=== PATIENT | female | born 1965 | race Caucasian/White ===

== ENCOUNTER 2016-04-27 11:04 | Emergency (ER) ==
[2016-04-27] MEDS ORDERED: PHENERGAN IV ONE ×2 (11:24→14:59)
[2016-04-27] MEDS ORDERED: SODIUM CHLORIDE 0.9% INJ ONE ×4 (11:24→14:59)
[2016-04-27] MEDS ORDERED: PROTONIX IV ONE (11:27)
[2016-04-27] MEDS ORDERED: PEPCID IV ONE (11:28)
[2016-04-27] MEDS ORDERED: MORPHINE IV ONE ×2 (11:28→14:59)
[2016-04-27 11:45] LABS: MANUAL DIFF NEEDED? NO
[2016-04-27 11:51] LABS: BASO% 0.1 % (0.0-0.8); HEMATOCRIT 42.9 % (37.0-47.0); HEMOGLOBIN 14.9 g/dL (12.0-16.0); IMM GRAN# 0.03 X1000 (0.0-0.04); IMM GRAN% 0.3 % (0.0-0.5); LYMPH# 2.99 X1000 (1.2-3.4); LYMPH% 29.3 % (20.5-51.1); MCH 34.4 PG (27-31); MCHC 34.7 g/dL (33-37); MCV 99.1 FL (81-99); MONO# 1.22 X1000 (0.11-0.59); MONO% 11.9 % (1.7-9.3); MPV 9.8 FL (7.4-10.4); NEUT% 58.4 % (42.2-75.2); PLT 375 X1000 (130-400); RBC 4.33 XMIL (4.2-5.4)
[2016-04-27 12:07] LABS: AGAP 18; ALBUMIN 4.1 g/dL (3.5-5.0); ALKALINE PHOSPHATASE 76 U/L (32-104); AMYLASE 67 U/L (20-200); BUN 9 mg/dL (8-22); CALCIUM 8.9 mg/dL (8.8-10.2); CHLORIDE 99 mmol/L (98-107); COSMO 280; GOT 13 U/L (10-30); GPT 7 U/L (10-36); LIPASE 24 U/L (13-60); POTASSIUM 3.5 mmol/L (3.5-5.1); SODIUM 141 mmol/L (136-145); TCO2 24 mmol/L (25-35); TOTAL BILIRUBIN 0.36 mg/dL (0.20-1.00); TOTAL PROTEIN 6.6 g/dL (6.3-8.3)
[2016-04-27 12:33] LABS: URINE CULTURE NEEDED? NO; URINE SOURCE CATH
[2016-04-27 12:39] LABS: BILIRUBIN URINE NEGATIVE (NEGATIVE); BLOOD URINE SMALL (NEGATIVE); COLOR YELLOW; GLUCOSE URINE NEGATIVE (NEGATIVE); LEUKOCYTES URINE NEGATIVE (NEGATIVE); NITRITE URINE NEGATIVE (NEGATIVE); PROTEIN URINE 200 mg/dL (NEGATIVE); TURBIDITY URINE CLEAR (CLEAR); UROBILINOGEN URINE NORMAL (NORMAL)
[2016-04-27 12:48] LABS: UR AMPHETAMINES QUAL PRESUMPTIVE POSITIVE (NONE DETECT); UR BARBITUATES QUAL NONE DETECTED (NONE DETECT); UR BENZODIAZEPIN QUAL PRESUMPTIVE POSITIVE (NONE DETECT); UR CANNABINOIDS QUAL NONE DETECTED (NONE DETECT); UR COCAINE QUAL NONE DETECTED (NONE DETECT); UR METHADONE QUAL NONE DETECTED (NONE DETECT); UR OPIATES QUAL PRESUMPTIVE POSITIVE (NONE DETECT); UR OXYCODONE QUAL PRESUMPTIVE POSITIVE (NONE DETECT); UR PCP QUAL PRESUMPTIVE POSITIVE (NONE DETECT)
[2016-04-27 12:59] LABS: SED RATE 3 mm/hr (0-20)
[2016-04-27 13:02] LABS: UR EPITHELIAL CELLS >10 /HPF (<10); URINE BACTERIA NEGATIVE /HPF; URINE MICRO REVIEW NEEDED? YES; URINE RBC <10 /HPF (<10); URINE WBC <10 /HPF (<10)
[2016-04-27 13:05] LABS: URINE CASTS NONE SEEN
--- NOTE | 2016-04-27 13:33 | PROVIDER DOCUMENTATION ---
HPI-Abdominal Pain/GI Problem - General Chief Complaint: Abdominal Pain Stated Complaint: Abd Pain,Dx with Gastritis Time Seen by Provider: 04/27/16 11:04 Source: patient, family Allergies/Adverse Reactions: Patient Allergies Allergy/AdvReac Type Severity Reaction Status Date / Time meperidine HCl * Allergy "made me Verified 04/27/16 11:23 [From Demerol] feel like I'm going crazy" ondansetron HCl * Allergy RASH Verified 04/27/16 11:23 [From Zofran (as hydrochloride)] Home Medications: Home Medication List Medication Instructions Recorded Confirmed Last Taken Type Promethazine [Phenergan] 25 mg PO Q6H PRN PRN #30 tablet 10/12/15 04/27/1604/27 05:00 Rx Omeprazole 40 mg PO DAILY 04/27/16 04/27/16 04/26/16 21:00 History Promethazine [Phenergan] 25 mg PO Q6H PRN PRN #30 tablet 04/27/16 Unknown Rx - History of Present Illness-ABD Nature of Presenting Problems: 51 yo WF presents with complaint of 2 weeks of very high fever and abdominal pain. She was seen in [place] last week. No studies were performed. She has severe abd pain, and vomiting. Hx of crohn's. Abdominal Pain Onset Location: reports: generalized abdomen Quality of Pain: reports: aching, cramping, sharp Severity in ED: reports: moderate Onset/Duration: reports: other (two weeks) Timing: reports: still present Activities at Onset: reports: none Modifying Factors: improves with: nothing Associated Symptoms: reports: fatigue, loss of appetite, vomiting. denies: chest pain, constipation, genitourinary problems, heartburn, shortness of breath , swelling/mass in abdomen Last BM: unsure Dark Stools Present?: reports: none noticed Rectal Bleeding: reports: none Rectal Pain: reports: none Emesis Description: reports: clear Bruising or Bleeding Gums?: No Similar Symptoms Previously?: Yes Recently seen or treated by another doctor?: Yes Review of Systems - Adult - REVIEW OF SYSTEMS - ADULT Constitutional: reports: fever Eyes: reports: no symptoms reported Ears, Nose, Mouth & Throat: reports: no symptoms reported Cardiovascular: reports: no symptoms reported Respiratory: reports: no symptoms reported Gastrointestinal: reports: see HPI, abdominal pain, nausea, poor appetite, vomiting. denies: hematemesis, constipation, diarrhea Genitourinary: reports: no symptoms reported Musculoskeletal: reports: no symptoms reported Integumentary: reports: no symptoms reported Neurological: reports: no symptoms reported Psychiatric: reports: no symptoms reported Endocrine: reports: no symptoms reported Hematologic/Lymphatic: reports: no symptoms reported Allergic/Immunologic: reports: no symptoms reported All Other Systems: Reviewed and Negative Past History - Adult - PAST MEDICAL HISTORY-ADULT Review of Records: reports: Old Records Reviewed, Nursing Assessment Review, Medications Reviewed, Social history reviewed & non-contributory. Genitourinary: reports: kidney stones - PRIOR SURGERIES/PROCEDURES Surgical/Procedure History: reports: appendectomy, tonsillectomy, other ( lithotripsy) - IMMUNIZATION STATUS Childhood Immunizations: See Nurse Assessment Flu Vaccine: See Nurse Assessment - FAMILY HISTORY Family History: reviewed, not pertinent - SOCIAL HISTORY Smoking: cigarettes, less than 1 pack/day Substance Use: denies Alcohol Use Frequency: never Living Situation: family Physical Exam-General - PHYSICAL EXAM-ADULT Initial Vital Signs Reviewed: Yes - CONSTITUTIONAL General Appearance: alert, mild distress - EYES Eyes: PERRL/EOMI, pink conjunctivae - HEAD, EARS, NOSE, MOUTH & THROAT HENMT: normocephalic/atraumatic, moist mucous membranes - NECK Neck: non-tender, full range of motion - RESPIRATORY Respiratory: lungs clear, normal breath sounds, no pleuratic chest pain, no respiratory distress, no accessory muscle use - CARDIOVASCULAR Cardiovascular: normal peripheral pulses, regular rate, rhythm, no edema, no JVD , no murmur - GASTROINTESTINAL (ABDOMEN) Abdominal Exam: normal bowel sounds, soft, guarding. negative: rigid, rebound - MUSCULOSKELETAL Back Exam: no CVA tenderness, no vertebral tenderness Extremity: no pedal edema, no calf tenderness - SKIN Integumentary: normal color, normal turgor - NEUROLOGIC Neurologic: grossly normal - PSYCHIATRIC Psych/Mental Status: normal mood/affect, normal thought content, normal thought process, oriented x 3 Progress - PLAN OF CARE/RESULTS Progress/Plan/Lab Results: Orders Category Date Time Status Saline Loc DIRECTED Care 04/27/16 11:25 Active NPO Diet 04/27/16 11:[address] ABD/PELVIS W/ IV CONT ONLY [CT] Stat Exams 04/27/16 13:05 Ordered AMYLASE [CHEM] Stat Lab 04/27/16 11:32 Completed CBC WITH ELECTRONIC DIFF [HEME] Stat Lab 04/27/16 11:32 Completed COMPREHENSIVE METABOLIC PANEL [CHEM] Stat Lab 04/27/16 11:32 Completed LIPASE [CHEM] Stat Lab 04/27/16 11:32 Completed SED RATE [HEME] Stat Lab 04/27/16 11:32 Completed URINALYSIS W/POSS RFLX CULT [URINALYSIS] Stat Lab 04/27/16 12:16 Completed URINE DRUG SCREEN Stat Lab 04/27/16 12:16 Completed URINE MANUAL MICROSCOPIC [URINALYSIS] Stat Lab 04/27/16 12:16 Completed Famotidine [Pepcid] Med 04/27/16 11:28 Discontinued 20 mg IV NOW ONE Morphine Med 04/27/16 11:28 Discontinued 4 mg IV NOW ONE Pantoprazole [Protonix] Med 04/27/16 11:27 Discontinued 40 mg IV NOW ONE Promethazine [Phenergan] Med 04/27/16 11:24 Discontinued 25 mg IV NOW ONE Sodium Chloride 0.9% Med 04/27/16 11:24 Discontinued 10 ml INJ NOW ONE Sodium Chloride 0.9% Med 04/27/16 11:28 Discontinued 10 ml INJ NOW ONE Sodium Chloride 0.9% Med 04/27/16 11:28 Discontinued 5 - 10 ml INJ NOW ONE Vital Signs Temp Pulse Resp BP Pulse Ox 04/27/16 12:57 81 131/100 98 04/27/16 11:07 98.3 F 95 H 18 114/82 99 meperidine HCl * [From Demerol] Allergy (Verified 04/27/16 11:23) "made me feel like I'm going crazy" ondansetron HCl * [From Zofran (as hydrochloride)] Allergy (Verified 04/27/16 11 :23) RASH Promethazine [Phenergan] 25 mg PO Q6H PRN PRN #30 tablet 10/12/15 Omeprazole 40 mg PO DAILY 04/27/16 Dietary Diet NPO Start Sun Apr 5 1125 I&O 04/26/16 04/27/16 04/28/16 07:59 07:59 07:59 Output Total 20 Balance -20 Laboratory 04/27/16 04/27/16 04/27/16 12:16 12:16 11:32 WBC RBC Hgb Hct MCV MCH MCHC RDW Std Deviation Plt Count MPV Immature Gran % (Auto) Neut % (Auto) Lymph % (Auto) [place] % (Auto) Eos % (Auto) Baso % (Auto) Immature Gran # (Auto) Neut # (Auto) Lymph # (Auto) [place] # (Auto) Eos # (Auto) Baso # (Auto) ESR Sodium 141 Potassium 3.5 Chloride 99 Carbon Dioxide 24 L Anion Gap 18 BUN 9 Creatinine 0.9 Estimated GFR/1.73 m2 > 60 BUN/Creatinine Ratio 10 Glucose 95 Calculated Osmolality 280 Calcium 8.9 Total Bilirubin 0.36 AST 13 ALT 7 L Alkaline Phosphatase 76 Total Protein 6.6 Albumin 4.1 Globulin 2.5 Albumin/Globulin Ratio 1.6 Amylase 67 Lipase 24 Urine Source CATH Urine Color YELLOW Urine Turbidity CLEAR Urine pH 6.0 Ur Specific [place] 1.050 Urine Protein 200 A Ur Glucose (Stick) NEGATIVE Ur Ketones (Stick) NEGATIVE Urine Blood SMALL A Urine Nitrite NEGATIVE Urine Bilirubin NEGATIVE Urobilinogen Dipstick NORMAL Urine Leukocytes NEGATIVE Urine WBC (Auto) <10 Urine RBC (Auto) <10 U Epithel Cells (Auto) >10 A Urine Bacteria (Auto) NEGATIVE Urine Crystals Not Reportable Small Round Cells Not Reportable Urine Casts NONE SEEN Urine Yeast-like Cells NONE SEEN Urine Opiates Screen PRESUMPTIVE POSITIVE A Ur Oxycodone Screen PRESUMPTIVE POSITIVE A Ur Methadone, Qual NONE DETECTED Ur Barbiturates Screen NONE DETECTED Ur Phencyclidine Scrn PRESUMPTIVE POSITIVE A Ur Amphetamines Screen PRESUMPTIVE POSITIVE A U Benzodiazepines Scrn PRESUMPTIVE POSITIVE A Urine Cocaine Screen NONE DETECTED U Cannabinoids Screen NONE DETECTED 04/27/16 11:32 WBC 10.22 RBC 4.33 Hgb 14.9 Hct 42.9 MCV 99.1 H MCH 34.4 H MCHC 34.7 RDW Std Deviation 11.5 Plt Count 375 MPV 9.8 Immature Gran % (Auto) 0.3 Neut % (Auto) 58.4 Lymph % (Auto) 29.3 [place] % (Auto) 11.9 H Eos % (Auto) 0.0 Baso % (Auto) 0.1 Immature Gran # (Auto) 0.03 Neut # (Auto) 5.97 Lymph # (Auto) 2.99 [place] # (Auto) 1.22 H Eos # (Auto) 0.00 Baso # (Auto) 0.01 ESR 3 Sodium Potassium Chloride Carbon Dioxide Anion Gap BUN Creatinine Estimated GFR/1.73 m2 BUN/Creatinine Ratio Glucose Calculated Osmolality Calcium Total Bilirubin AST ALT Alkaline Phosphatase Total Protein Albumin Globulin Albumin/Globulin Ratio Amylase Lipase Urine Source Urine Color Urine Turbidity Urine pH Ur Specific [place] Urine Protein Ur Glucose (Stick) Ur Ketones (Stick) Urine Blood Urine Nitrite Urine Bilirubin Urobilinogen Dipstick Urine Leukocytes Urine WBC (Auto) Urine RBC (Auto) U Epithel Cells (Auto) Urine Bacteria (Auto) Urine Crystals Small Round Cells Urine Casts Urine Yeast-like Cells Urine Opiates Screen Ur Oxycodone Screen Ur Methadone, Qual Ur Barbiturates Screen Ur Phencyclidine Scrn Ur Amphetamines Screen U Benzodiazepines Scrn Urine Cocaine Screen U Cannabinoids Screen 1450 Discussed results with patient. At this time she added that she has lost 50 lbs since November and that despite periodic use of phenergan she still can't hold anything down. She has no explanation for her labs being completely normal after such a long period of illness or why her UDS was positive for so many substances. - CT/MRI 1 CT Study: Abdomen Impression: Normal Departure - Departure Time of Disposition Order: 15:03 DIAGNOSIS: Cyclic vomiting syndrome Qualifiers: Vomiting Intractability: intractable Nausea presence: with nausea Qualified Code(s): G43.A1 - Cyclical vomiting, intractable Disposition: HOME 01 Certified Medical Emergency: Emergent Condition: Stable Additional Instructions: Call Dr. Gudino Thursday for appointment Prescriptions: Promethazine [Phenergan] 25 mg PO Q6H PRN PRN #30 tablet PRN Reason: Nausea Referrals: Laurent Roldan MD [STAFF PHYSICIAN] -
--- NOTE | 2016-04-27 15:09 | Diag Imaging Result Document ---
PROCEDURE NAME: CT ABD/PELVIS W/ IV CONT ONLY - 04/27/2016 CT ABDOMEN AND PELVIS WITH INTRAVENOUS CONTRAST: COMPARISON: 04/16/2014. FINDINGS: There is a granuloma in the left base surrounded by soft tissue thickening similar to prior exam. The gallbladder has been removed. No focal hepatic abnormality. Normal spleen, pancreas, and adrenal glands. Normal enhancement of the kidneys. No hydronephrosis. No aortic aneurysm. No bowel obstruction. The appendix has been removed. There are many pelvic calcifications believed to be phleboliths. Normal uterus. Neither ovary is enlarged. The urinary bladder is moderately distended and appears normal. IMPRESSION: 1. Cholecystectomy and appendectomy. 2. No bowel obstruction. No abscess. 3. Radiopaque debris in the cecum. A preliminary report was given at 2:39 p.m.
[2016-04-27 15:52] VITALS: BP 116/86
== END 2016-04-27 15:51 | disposition home or self-care (01) ==
LOC: EDBD → ED 11:04
DX: G43.A1 Cyclical vomiting, in migraine, intractable (principal); R10.84 Generalized abdominal pain; R53.83 Other fatigue; R50.9 Fever, unspecified; Z87.442 Personal history of urinary calculi; F17.210 Nicotine dependence, cigarettes, uncomplicated; Z79.899 Other long term (current) drug therapy
CPT/HCPCS: 74177; 80053; 81001; 82150; 83690; 85025; 85651; C9113; G0480; J2270; J2550; Q9966; 80324; 80345; 80346; 80349; 80353; 80358; 80361; 80365; 83992; S0028; S0164

== ENCOUNTER 2016-08-13 12:32 | Inpatient (IN) ==
[2016-08-13] MEDS ORDERED: MORPHINE IV ONE ×3 (13:11→15:44)
[2016-08-13] MEDS ORDERED: NS 1,000 ML IV ONE (13:11)
[2016-08-13] MEDS ORDERED: SODIUM CHLORIDE 0.9% INJ ONE ×3 (13:11→15:46)
[2016-08-13] MEDS ORDERED: PHENERGAN IV ONE ×2 (13:11→15:44)
[2016-08-13 13:40] LABS: MANUAL DIFF NEEDED? NO
[2016-08-13 13:47] LABS: URINE CULTURE NEEDED? NO; URINE MICRO REVIEW NEEDED? NO; URINE SOURCE CLEAN CATCH
[2016-08-13 13:48] LABS: BASO% 0.2 % (0.0-0.8); EOS# 0.07 X1000 (0.0-0.7); EOS% 0.7 % (0.0-10.0); HEMATOCRIT 37.7 % (37.0-47.0); HEMOGLOBIN 12.3 g/dL (12.0-16.0); LYMPH# 1.86 X1000 (1.2-3.4); LYMPH% 19.7 % (20.5-51.1); MCH 33.5 PG (27-31); MCHC 32.6 g/dL (33-37); MCV 102.7 FL (81-99); MONO% 6.3 % (1.7-9.3); MPV 8.9 FL (7.4-10.4); NEUT% 73.1 % (42.2-75.2); PLT 457 X1000 (130-400); RBC 3.67 XMIL (4.2-5.4)
[2016-08-13 14:07] LABS: AGAP 11; ALKALINE PHOSPHATASE 76 U/L (32-104); AMYLASE 104 U/L (20-200); BUN 16 mg/dL (8-22); CHLORIDE 104 mmol/L (98-107); COSMO 282; GOT 13 U/L (10-30); GPT 7 U/L (10-36); LIPASE 48 U/L (13-60); POTASSIUM 4.1 mmol/L (3.5-5.1); SODIUM 141 mmol/L (136-145); TCO2 26 mmol/L (25-35); TOTAL BILIRUBIN 0.27 mg/dL (0.20-1.00); TOTAL PROTEIN 6.8 g/dL (6.3-8.3)
[2016-08-13 14:10] LABS: BILIRUBIN URINE NEGATIVE (NEGATIVE); BLOOD URINE TRACE (NEGATIVE); COLOR YELLOW; GLUCOSE URINE NEGATIVE (NEGATIVE); LEUKOCYTES URINE NEGATIVE (NEGATIVE); NITRITE URINE NEGATIVE (NEGATIVE); PH URINE 5.5; PROTEIN URINE TRACE mg/dL (NEGATIVE); SP GRAVITY URINE 1.024; TURBIDITY URINE CLEAR (CLEAR); UROBILINOGEN URINE NORMAL (NORMAL)
[2016-08-13 14:12] LABS: UR EPITHELIAL CELLS <10 /HPF (<10); URINE BACTERIA NEGATIVE /HPF; URINE RBC <10 /HPF (<10); URINE WBC <10 /HPF (<10)
--- NOTE | 2016-08-13 14:53 | Diag Imaging Result Doc PS360 ---
CT ABD/PELVIS W/ IV CONT ONLY - 08/13/2016 INDICATION: epigastric pain vomiting h/o crohn TECHNIQUE: A CT dose reduction protocol was used. COMPARISON: 04/27/2016 FINDINGS: Stable granuloma and scarring in the left lower lobe. Stable cholecystectomy changes. Stable surgical suture lines at the proximal colon. There are numerous stable calcifications at the pelvis, mostly at the inferior, anterior left pelvic soft tissues. Urinary bladder, uterus, and rectum are normal. No bowel obstruction or inflammation. The solid abdominal organs are normal. Bony structures are intact. IMPRESSION: No acute disease or change from prior. Electronically signed by Richard Serna 08/13/2016 2:51 PM
[2016-08-13] MEDS ORDERED: PROTONIX IV ONE (15:46)
--- NOTE | 2016-08-13 16:02 | PROVIDER DOCUMENTATION ---
This chart was entered by Swapna Swann Scribe, acting as scribe for Natalie Littlejohn MD. HPI-Abdominal Pain/GI Problem - General Chief Complaint: Nausea/Vomiting Stated Complaint: N/V/D, CHEST PAIN Time Seen by Provider: 08/13/16 12:52 Source: patient Allergies/Adverse Reactions: Patient Allergies Allergy/AdvReac Type Severity Reaction Status Date / Time meperidine HCl * Allergy "made me Verified 08/13/16 13:17 [From Demerol] feel like I'm going crazy" ondansetron HCl * Allergy RASH Verified 08/13/16 13:17 [From Zofran (as hydrochloride)] Home Medications: Home Medication List Medication Instructions Recorded Confirmed Last Taken Type Omeprazole 40 mg PO DAILY 04/27/16 08/13/16 3 Days Ago History - History of Present Illness-ABD Nature of Presenting Problems: 51 Y/O F presents to the ER by EMS with the complain of abd pain that goes to her back started this morning. Pt states that she had this pain going on for 6 days and today got worse. pt states that she was feeling chest pain, SOB and felling like passing out with abd pain. pt denies any other symptoms. Abdominal Pain Onset Location: reports: epigastric Pain Radiation: reports: epigastric, back Quality of Pain: reports: sharp Onset/Duration: reports: this morning Timing: reports: still present Associated Symptoms: reports: chest pain, diarrhea, nausea, shortness of breath , vomiting Review of Systems - Adult - REVIEW OF SYSTEMS - ADULT Constitutional: denies: chills, fever Eyes: reports: no symptoms reported Ears, Nose, Mouth & Throat: reports: no symptoms reported Cardiovascular: reports: chest pain. denies: heart murmur, palpitations Respiratory: reports: shortness of breath. denies: cough, wheezing Gastrointestinal: reports: abdominal pain (epigastric), diarrhea, nausea, vomiting Genitourinary: denies: dysuria, hematuria Musculoskeletal: reports: no symptoms reported Integumentary: reports: no symptoms reported Neurological: reports: no symptoms reported Psychiatric: reports: no symptoms reported Endocrine: reports: no symptoms reported Hematologic/Lymphatic: reports: no symptoms reported Allergic/Immunologic: reports: no symptoms reported All Other Systems: Reviewed and Negative Past History - Adult - PAST MEDICAL HISTORY-ADULT Review of Records: reports: Old Records Reviewed, Nursing Assessment Review Major Childhood Illnesses: reports: denies history Genitourinary: reports: kidney stones - PRIOR SURGERIES/PROCEDURES Surgical/Procedure History: reports: appendectomy, tonsillectomy, other ( lithotripsy) - IMMUNIZATION STATUS Childhood Immunizations: See Nurse Assessment Flu Vaccine: See Nurse Assessment - FAMILY HISTORY Family History: reviewed, not pertinent - SOCIAL HISTORY Smoking: cigarettes Provider spent 3-5 mins advising pt. on dangers of tobacco.: Discussed manners to quit use, and f/u contacts for add'l counseling. Physical Exam-General - PHYSICAL EXAM-ADULT Initial Vital Signs Reviewed: Yes - CONSTITUTIONAL General Appearance: appears well, alert - EYES Eyes: PERRL/EOMI, pink conjunctivae - HEAD, EARS, NOSE, MOUTH & THROAT HENMT: moist mucous membranes, TMs normal - NECK Neck: non-tender, full range of motion, supple - RESPIRATORY Respiratory: lungs clear, normal breath sounds - CARDIOVASCULAR Cardiovascular: regular rate, rhythm, no edema - GASTROINTESTINAL (ABDOMEN) Abdominal Exam: normal bowel sounds, non tender, soft, tenderness (epigastric) - MUSCULOSKELETAL Back Exam: no CVA tenderness, no vertebral tenderness Extremity: no pedal edema, no calf tenderness - SKIN Integumentary: normal color, normal turgor, warm/dry - NEUROLOGIC Neurologic: grossly normal, no motor/sensory deficits - PSYCHIATRIC Psych/Mental Status: normal mood/affect, normal thought content, normal thought process, oriented x 3 Progress - PLAN OF CARE/RESULTS Progress/Plan/Lab Results: Vital Signs - 8 hr 08/13/16 13:10 08/13/16 14:59 08/13/16 15:23 Temperature 98.0 F 98 F Pulse Rate 82 88 83 Respiratory Rate 18 18 Blood Pressure 137/79 160/100 152/92 O2 Sat by Pulse Oximetry 98 98 97 Bedside Urine ED: Urine Bedside Start: 08/13/16 13:28 Freq: ORDERED Status: Active Activity Type Activity Date Activity User E-Sign Co-Sign Detail Recorded Client Recorded Date Recorded By Document 08/13/16 13:42 [id number] 08/13/16 13:44 [id number] 08/13/16 13:42 Point of Care [Bedside Point of Care] -Lot # [id number] EXP 2018/07 - Results Negative -Control Line Visible? Yes Laboratory Results - last 24 hr 08/13/16 08/13/16 08/13/16 13:12 13:12 13:40 WBC 9.45 RBC 3.67 L Hgb 12.3 Hct 37.7 MCV 102.7 H MCH 33.5 H MCHC 32.6 L RDW Std Deviation 13.0 Plt Count 457 H MPV 8.9 Neut % (Auto) 73.1 Lymph % (Auto) 19.7 L [place] % (Auto) 6.3 Eos % (Auto) 0.7 Baso % (Auto) 0.2 Neut # (Auto) 6.90 H Lymph # (Auto) 1.86 [place] # (Auto) 0.60 H Eos # (Auto) 0.07 Baso # (Auto) 0.02 Sodium 141 Potassium 4.1 Chloride 104 Carbon Dioxide 26 Anion Gap 11 BUN 16 Creatinine 0.6 Estimated GFR/1.73 m2 > 60 BUN/Creatinine Ratio 27 Glucose 87 Calculated Osmolality 282 Calcium 9.0 Total Bilirubin 0.27 AST 13 ALT 7 L Alkaline Phosphatase 76 Total Protein 6.8 Albumin 4.0 Globulin 2.8 Albumin/Globulin Ratio 1.4 Amylase 104 Lipase 48 Urine Source CLEAN CATCH Urine Color YELLOW Urine Turbidity CLEAR Urine pH 5.5 Ur Specific [place] 1.024 Urine Protein TRACE A Ur Glucose (Stick) NEGATIVE Ur Ketones (Stick) NEGATIVE Urine Blood TRACE A Urine Nitrite NEGATIVE Urine Bilirubin NEGATIVE Urobilinogen Dipstick NORMAL Urine Leukocytes NEGATIVE Urine WBC (Auto) <10 Urine RBC (Auto) <10 U Epithel Cells (Auto) <10 Urine Bacteria (Auto) NEGATIVE Orders Category Date Time Status ED: Urine Bedside ORDERED Care 08/13/16 13:28 Active PO Fluid Challenge DIRECTED Care 08/13/16 15:09 Active Saline Loc DIRECTED Care 08/13/16 13:10 Active NPO Diet 08/13/16 13:[address] ABD/PELVIS W/ IV CONT ONLY [CT] Stat Exams 08/13/16 13:10 Completed AMYLASE [CHEM] Stat Lab 08/13/16 13:12 Completed CBC WITH ELECTRONIC DIFF [HEME] Stat Lab 08/13/16 13:12 Completed COMPREHENSIVE METABOLIC PANEL [CHEM] Stat Lab 08/13/16 13:12 Completed LIPASE [CHEM] Stat Lab 08/13/16 13:12 Completed URINALYSIS W/POSS RFLX CULT-1 [URINALYSIS] Stat Lab 08/13/16 13:40 Completed 0.9% Sodium Chloride Inj [Ns] 1,000 ml Med 08/13/16 13:11 Discontinued IV 999 mls/hr Morphine Med 08/13/16 13:11 Discontinued 4 mg IV NOW ONE Morphine Med 08/13/16 14:02 Discontinued 4 mg IV NOW ONE Morphine Med 08/13/16 15:44 Discontinued 4 mg IV NOW ONE Pantoprazole [Protonix] Med 08/13/16 15:46 Discontinued 40 mg IV NOW ONE Promethazine [Phenergan] Med 08/13/16 15:44 Discontinued 12.5 mg IV NOW ONE Promethazine [Phenergan] Med 08/13/16 13:11 Discontinued 25 mg IV NOW ONE Sodium Chloride 0.9% Med 08/13/16 13:11 Discontinued 10 ml INJ NOW ONE Sodium Chloride 0.9% Med 08/13/16 15:44 Discontinued 10 ml INJ NOW ONE Sodium Chloride 0.9% Med 08/13/16 15:46 Discontinued 10 ml INJ NOW ONE Result Diagrams: 08/13/16 13:12 08/13/16 13:12 - REASSESSMENT Reassessment #1 Time Reassessed: 16:01 (pt states not getting better pt unable to tolerate po intake will admit for intractable vomiting ct neg for acute findings case dw hospitalist will accept ) Status: unchanged - EKG 1 Time of EKG reading by physician:: 12:51 EKG Read and Signed by:: Natalie Littlejohn EKG Interpretation (*Must complete 3 of following elements*): Normal Rate: 73 Rhythm: Normal Sinus rhythm Comments: Normal ECG - CT/MRI 1 CT Study: Abdomen, Pelvis Impression: Normal CT Results: no acute findings or change from prior by radiologist Departure - Departure Date of Disposition Decision: 08/13/16 Time of Disposition Decision: 16:01 DIAGNOSIS: Intractable vomiting Qualifiers: Vomiting type: cyclical vomiting Nausea presence: with nausea Qualified Code(s) : G43.A1 - Cyclical vomiting, intractable Disposition: ADMITTED INPATIENT 09 Certified Medical Emergency: Emergent Condition: Fair Referrals and Follow-Ups: None,PCP [Primary Care Provider] - - Critical Care Note This patient required my direct & personal management of CC.: No This chart was documented by the indicated scribe, (Swapna Swann, [place]) and accurately reflects the services I performed and decisions made by me, Natalie Littlejohn MD, as attested by the provider's signature.
--- NOTE | 2016-08-13 17:02 | HISTORY AND PHYSICAL ---
Ms. Juares is a 51-year-old who presented to the emergency room. States the last 2 weeks she has had trouble keeping any food or liquids down. She has had abdominal pain, but it started off 2 weeks ago. Really her main concern was that she could not sleep and she just went without any sleep. She does state that she does smoke marijuana. She is not drinking any alcohol. She has taken Adderall before but denies taking any recently. Her fiance reports and she reports that she has lost at least 45 pounds since November. I saw where she was admitted back in September 2015. Her primary care doctor is in [place], his name is Manohar Schrader and she has a promotion producer there as well but she has lost her insurance and has not had any followup with them. She was on Humira for Crohn's disease. She has also been diagnosed with rheumatoid arthritis. She has had some chronic pain but she denies taking any pain medication. She has had numerous kidney stones and required lithotripsy, none recently. PAST SURGICAL HISTORY: 1. Status post appendectomy. 2. Status post tonsillectomy. 3. Status post lithotripsy. 4. She has had a tubal ligation. 5. Cholecystectomy. SOCIAL HISTORY: Does smoke marijuana and negative for alcohol or tobacco. She has not smoked marijuana in a while by report and does no it frequently. PAST MEDICAL HISTORY: History of heart disease. Mother of a stroke I think just a year ago or this last year. Her daughter moved away for a job opportunity. She has had a lot of stress and admittedly a lot of stress and depression. ALLERGIES: No known drug allergies. REVIEW OF SYSTEMS: General: Impressive amount of weight loss from November, greater than 45 pounds. She is not able to keep much food down. Poor appetite. The last week or so she has not been able to keep liquids or food down. Cardiovascular: No chest pain or tachy palpitation. She has had some pleuritic pain this last couple days but no squeezing pressure pain. GI/: No gross hematuria or dysuria. Musculoskeletal/Neurologic: No significant complaints. Endocrinologic/Hematologic: No significant history. PHYSICAL EXAMINATION: Temp 98 degrees, pulse 90, respirations 18, blood pressure 137/102. HEENT: Pupils are equal, round. LUNGS: Clear in all lung [place]. CARDIOVASCULAR: Regular rhythm and rate without murmur or S3. ABDOMEN: Soft, nondistended but she is tender. She is tender around her around the periumbilical area, just kind of a diffuse tenderness. No rebound tenderness but she is very touchy there and a lot of guarding when you mash on her tummy. I do not appreciate organomegaly. SKIN: Warm and dry. Height 5 feet 6 inches, weight 100 pounds. LABORATORY DATA: White count 9450, hematocrit 37, platelet count 457,000. Sodium 141, potassium 4.1, chloride 104, bicarb 26, BUN 16, creatinine 0.6, calcium is 9.0. Liver functions unremarkable. Albumin 4.0. Amylase 104, lipase 48. Urinalysis unremarkable. She had an abdominal pelvic CT. No acute disease. No change from prior and prior study was done on 04/27/2016. Lab as I stated, reviewed pretty unremarkable. No significant anemia. She is macrocytic with a normal hematocrit. ASSESSMENT AND PLAN: 1. Abdominal pain and history of Crohn's disease. She has not been on any medications. Been off her Humira. She has pain in her abdomen, pain that goes around the flank and she has had some pleuritic pain and an impressive amount weight loss. I am going to check her thyroid studies and cortisol. I will check a C-reactive protein, and I will check B12 and folate. I asked Dr. Ly Lopez to help. She has seen her before in the hospital and see if we can find anything that is going to be reversible or helpful. Concerning obviously about potential for malignancy. 2. History rheumatoid arthritis, aware. 3. Anorexia, significant weight loss. Severe protein calorie malnutrition. We will check a pre- albumin. Note her albumin is 4.0 right now. I will probably check a hepatitis profile even though liver functions are pretty unremarkable and may need to check an HIV status as well. cc: Joe Clark MD
[2016-08-13] MEDS ORDERED: TYLENOL PO PRN (18:12)
[2016-08-13] MEDS ORDERED: SODIUM CHLORIDE 0.9% INJ PRN (18:12)
[2016-08-13 18:24] LABS: UR AMPHETAMINES QUAL NONE DETECTED (NONE DETECT); UR BARBITUATES QUAL NONE DETECTED (NONE DETECT); UR BENZODIAZEPIN QUAL NONE DETECTED (NONE DETECT); UR CANNABINOIDS QUAL NONE DETECTED (NONE DETECT); UR COCAINE QUAL NONE DETECTED (NONE DETECT); UR METHADONE QUAL NONE DETECTED (NONE DETECT); UR OPIATES QUAL NONE DETECTED (NONE DETECT); UR OXYCODONE QUAL NONE DETECTED (NONE DETECT); UR PCP QUAL NONE DETECTED (NONE DETECT)
[2016-08-13] MEDS: PHENERGAN IV PRN ×2 (18:47→23:00)
[2016-08-13] MEDS: MORPHINE IV PRN ×3 (18:49→23:19)
[2016-08-13] MEDS: NS 1,000 ML IV SCH (18:54)
[2016-08-13] MEDS ORDERED: PNEUMOVAX 23 IM ONE (19:30)
[2016-08-13] MEDS: CARAFATE LIQUID PO SCH (21:05)
[2016-08-13] MEDS: ATIVAN IV PRN (21:05)
[2016-08-14] MEDS: MORPHINE IV PRN ×11 (01:14→23:23)
[2016-08-14] MEDS: ATIVAN IV PRN ×6 (01:45→23:22)
[2016-08-14] MEDS: PHENERGAN IV PRN ×5 (03:14→21:18)
[2016-08-14] MEDS: CARAFATE LIQUID PO SCH ×4 (04:27→21:07)
[2016-08-14] MEDS: PROTONIX IV SCH ×2 (04:28→16:27)
--- NOTE | 2016-08-14 05:48 | CONSULTATION ---
DATE OF CONSULTATION: 08/13/2016 REFERRING PHYSICIAN: Joe Clark M.D. PRIMARY CARE PROVIDER: Manohar Schrader M.D. INDICATION FOR CONSULTATION: 1. Nausea with vomiting. 2. Abdominal pain. HISTORY OF PRESENT ILLNESS: The patient is a 51-year-old white female who was seen in September of last year when she presented with nausea, vomiting, and epigastric pain with radiation into the left upper quadrant. On EGD, she was found to have severe erosive gastritis and a duodenal ulcer. She was discharged to home on PPI therapy and Carafate. She reports symptomatic resolution. She also has inflammatory bowel disease, which was initially diagnosed as ulcerative colitis but has subsequently thought to be Crohn's disease. She has been lost to follow up as she lost her insurance. She was previously on Humira that was prescribed by her local record changer tester in [place], [place]. She presented to the emergency room today with 2 weeks of nausea with vomiting and periumbilical abdominal pain. She describes pain that radiates into the left upper quadrant. She reports 5 watery bowel movements per day but states that this has been her usual stool output since she has not been able to afford her Humira. She denies the presence of blood. Because of her GI symptoms, we are asked to participate in her care. REVIEW OF SYSTEMS: Remarkable in that she has been unable to sleep for the last 7 days. She reports being anxious and very talkative. She notes loss of appetite, early satiety, and fatigue. She has lost approximately 35-45 pounds over the last 6 months. The patient reports a 30-pound weight loss but her weight loss has been significantly greater based on the reported weights in the computer. She denies chest pain, shortness of breath. She denies melena or hematochezia. PAST MEDICAL HISTORY: 1. Inflammatory bowel disease. 2. Rheumatoid arthritis. 3. Chronic pain syndrome. 4. Kidney stones. 5. Gastroesophageal reflux disease. 6. History of peptic ulcer disease. 7. Duodenal ulcer in September 2015. 8. Severe erosive gastritis in September 2015. PAST SURGICAL HISTORY: 1. Appendectomy. 2. Tonsillectomy. 3. Lithotripsy. 4. Cholecystectomy. SOCIAL HISTORY: Negative for alcohol, tobacco or recreational drug use. However, she has had 1 ER visit where her urine toxicology screen was positive for marijuana. In addition, she has had a second ER visit, several months later were her urine toxicology screen was positive for opioids, oxycodone, PCP, amphetamines and benzodiazepines. FAMILY HISTORY: Negative for colon cancer or colon polyps. MEDICATION ALLERGIES: 1. Demerol. 2. Zofran. HOME MEDICATIONS: Omeprazole 40 mg daily. PHYSICAL EXAMINATION: General: On exam, she is in no acute distress. Vital Signs: Her blood pressure is 142/88, pulse of 80, respirations 16, temperature of 98.6 degrees. Her height is 5 feet 6 inches tall and weight is 100 pounds. Her previous weight in 2015 was 132 pounds. Her max weight is 140 pounds. HEENT: Negative for jaundice. Her conjunctivae are normal. Her oropharyngeal mucosal membranes are moist. Her teeth are remarkable for dental decay. Lungs: Clear to auscultation with normal expiratory effort. Cardiovascular: Exam reveals regular rate and rhythm with no murmurs, gallops, or rubs. Abdominal: Exam reveals normoactive bowel sounds. The abdomen is soft with periumbilical tenderness. There is no rebound or guarding. Extremities: Remarkable for temporal muscle wasting, wasting in the calf and thigh muscles but there is no evidence of cyanosis, clubbing or edema. Neurologic: She is appropriate but very talkative. There is no evidence of a pressured speech. OBJECTIVE DATA: Remarkable for a hemoglobin of 12.3 with hematocrit of 37.7, and a white count of 9.45. Her MCV is 102.7. Her MCH is 33.5, with 457,000 platelets. Sodium is 141, potassium 4.1, chloride 104, CO2 26, BUN 16, creatinine 0.7 with a glucose of 87. Calcium is 9.0, total bilirubin 0.27, AST 13, ALT 7, alkaline phosphatase 76, total protein 6.8, albumin 4.0, with an amylase of 104, and a lipase of 48. Her magnesium is 1.9. IMPRESSION: 1. Nausea with vomiting. 2. Periumbilical abdominal pain. 3. History of peptic ulcer disease. 4. History of inflammatory bowel disease. 5. Watery diarrhea. 6. Unplanned weight loss. RECOMMENDATION: 1. With regard to her periumbilical abdominal pain and nausea with vomiting, I recommend that she undergo a small bowel follow-through in the morning. Although, she had an ulcer on EGD in September 2015, it was not significant enough to account for her significant abdominal pain at that time. She reports that this pain is similar to her previous episode except worse. She notes that the pain has been persistent for the last several days. 2. Because of her insomnia, weight loss, and very talkative nature, I agree with assessing her thyroid with a TSH. 3. Because of her unplanned weight loss, I agree with checking her hepatitis profile, thyroid panel, HIV and inflammatory markers. I will change the high sensitivity CRP to a quantitative CRP which is a better marker of inflammation. 4. Please also check a stool occult for blood, C. difficile toxin, fecal white blood cell, stool lactoferrin and stool culture. Because of the patient's questionable history of inflammatory bowel disease, I would also check an inflammatory bowel disease panel to help us confirm her diagnosis. 5. The patient has a macrocytosis on CBC. Please check a B12 and folate level. 6. Depending on her test results and the results of her small-bowel follow- through, we will consider an EGD. 7. Because of her history of ulcers in the past, I would also add Carafate 1 g p.o. 4 times a day pending further evaluation. 8. Additional recommendations to follow based on her clinical course and test results. cc: MD Joe Espinoza MD James Matter MTDD
--- NOTE | 2016-08-14 05:49 | EKG Report ---
Test Performed on : 08/14/2016 03:27:27 AM Test Reason : CP Blood Pressure : / mmHG Vent. Rate : 089 BPM Atrial Rate : 089 BPM P-R Int : 146 ms QRS Dur : 080 ms QT Int : 366 ms P-R-T Axes : 068 006 039 degrees QTc Int : 445 ms Normal sinus rhythm. Normal ECG When compared with ECG of 13-AUG-2016 12:51, (Unconfirmed) No significant change was found Confirmed by Roni CASTILLO, Wilmer Miles ([id number]) on 08/14/2016 11:39:10 AM
[2016-08-14 06:17] LABS: MANUAL DIFF NEEDED? NO
[2016-08-14 06:33] LABS: BASO% 0.3 % (0.0-0.8); EOS# 0.13 X1000 (0.0-0.7); EOS% 1.4 % (0.0-10.0); HEMATOCRIT 34.3 % (37.0-47.0); LYMPH# 2.79 X1000 (1.2-3.4); LYMPH% 29.6 % (20.5-51.1); MCH 32.7 PG (27-31); MCHC 32.1 g/dL (33-37); MCV 102.1 FL (81-99); MONO# 0.82 X1000 (0.11-0.59); MONO% 8.7 % (1.7-9.3); MPV 9.1 FL (7.4-10.4); PLT 398 X1000 (130-400); RBC 3.36 XMIL (4.2-5.4)
[2016-08-14 06:50] LABS: INR 0.94; PROTIME 9.8 Seconds (9.2-11.7); PTT 22.7 Seconds (22.0-36.0)
[2016-08-14 07:12] LABS: AGAP 11; ALBUMIN 3.6 g/dL (3.5-5.0); ALKALINE PHOSPHATASE 69 U/L (32-104); BUN 9 mg/dL (8-22); CALCIUM 8.6 mg/dL (8.8-10.2); CHLORIDE 105 mmol/L (98-107); COSMO 277; GOT 16 U/L (10-30); GPT 6 U/L (10-36); MAGNESIUM 1.7 mg/dL (1.5-2.7); POTASSIUM 3.8 mmol/L (3.5-5.1); SODIUM 139 mmol/L (136-145); TCO2 23 mmol/L (25-35); TOTAL BILIRUBIN 0.11 mg/dL (0.20-1.00); TOTAL PROTEIN 6.2 g/dL (6.3-8.3)
[2016-08-14 07:20] LABS: FREE T4 0.78 ng/dL (0.93-1.70)
[2016-08-14 08:02] LABS: SED RATE 57 mm/hr (0-20)
--- NOTE | 2016-08-14 11:01 | EKG Report ---
Test Performed on : 08/13/2016 12:51:19 PM Test Reason : ED. Not ordered in [place] Blood Pressure : / mmHG Vent. Rate : 073 BPM Atrial Rate : 073 BPM P-R Int : 144 ms QRS Dur : 074 ms QT Int : 396 ms P-R-T Axes : 067 034 045 degrees QTc Int : 436 ms Normal sinus rhythm. Normal ECG No previous ECGs available Unconfirmed Result
--- NOTE | 2016-08-14 12:12 | Diag Imaging Result Doc PS360 ---
EXAM: SMALL BOWEL SERIES ONLY INDICATION: periumbilical abd pain, hx PUD, hx IBD COMPARISON: 10/10/2015 FINDINGS: The small bowel is grossly normal in course, caliber, contour, and mucosal relief. There are no discrete small bowel strictures or filling defects identified. The terminal ileum is unremarkable. Barium was seen in the colon beginning at three hours post administration. IMPRESSION: Unremarkable small bowel barium follow-through. Electronically signed by Chaz Peguero 08/14/2016 12:10 PM
[2016-08-14] MEDS: SODIUM CHLORIDE 0.9% INJ SCH ×2 (12:18→16:27)
--- NOTE | 2016-08-14 13:25 | PROGRESS NOTE ---
DATE: 08/14/2016 SUBJECTIVE: She does not feel much better. Still abdominal discomfort, not hungry. Feels very weak. OBJECTIVE: Vital Signs: Remains afebrile with temp 98.1 degrees, pulse 87, respirations 20, blood pressure 128/67. HEENT: CVP less than 6 cm. Lungs: Clear in all lung carrington. Cardiovascular exam: Regular rhythm and rate without murmur or S3. Abdomen: Soft. Skin: Warm and dry. I appreciate Dr. Lopez's help; she saw her yesterday. SUMMARY: This is a 51-year-old who was seen in September of last year presented with nausea, vomiting, epigastric pain, radiation to the left upper quadrant. EGD was found to have severe erosive gastritis and duodenal ulcer. Discharge home on PPI and Carafate. Reports symptomatic resolution. She also has inflammatory bowel disease, which initially diagnosed as ulcerative colitis, but subsequently thought to be Crohn disease. Then, lost to follow up. She has lost her insurance. She was previously on Humira prescribed by her local it communications specialist in [place]. Presented to the emergency room yesterday with the weight loss and continued abdominal pain. ASSESSMENT/PLAN: 1. Periumbilical abdominal pain, nausea and vomiting. We did a small-bowel follow-through, which was pretty unremarkable. She has an ulcer on esophagogastroduodenoscopy in September 2015; it is not significant to account for this particular type of pain and the weight loss. She has had similar pain, but worse for several weeks. 2. Because of insomnia, weight loss, we did check thyroid, T4 and TSH, and checked some general lab. Note that T4 was mildly low, but the TSH was normal, so appears to be pretty unremarkable. Because of significant weight loss, anorexia, we had hepatitis panel, human immunodeficiency virus and inflammatory markers checked by Dr. Lopez, who is going to check a quantitative C-reactive protein. 3. Check stool for occult blood, Clostridium difficile toxin, fecal white blood cells, stool lactoferrin, stool culture. 4. Macrocytosis noted. We did check a B [address] Lopez added Carafate to the regimen. Note C-reactive protein was low at 1.52. Troponin was 0.010. Magnesium was 1.7. cc: Joe Clark MD
[2016-08-14] MEDS: REGLAN IV PRN ×2 (16:16→23:22)
[2016-08-14] MEDS: NS 1,000 ML IV SCH ×2 (18:24→23:26)
--- NOTE | 2016-08-15 00:51 | PROGRESS NOTE ---
DATE: 08/14/2016 SUBJECTIVE: The patient states she is in a significant amount of pain and is requesting pain medications. OBJECTIVE: Her small bowel follow-through was negative today. ASSESSMENT AND PLAN: Therefore, we will place patient on the schedule for an EGD in the morning. Additional recommendations to follow pending our endoscopic evaluation. cc: MD Joe Espinoza MD
[2016-08-15] MEDS: MORPHINE IV PRN ×5 (01:27→14:18)
[2016-08-15] MEDS: PHENERGAN IV PRN ×2 (01:27→18:48)
[2016-08-15] MEDS: ATIVAN IV PRN ×4 (04:46→18:48)
[2016-08-15] MEDS: CARAFATE LIQUID PO SCH ×3 (05:28→16:50)
[2016-08-15] MEDS: PROTONIX IV SCH ×2 (05:28→16:51)
[2016-08-15] MEDS ORDERED: VERSED ONE ×2 (07:30→07:37)
[2016-08-15] MEDS ORDERED: DIPRIVAN 1% ONE (07:35)
[2016-08-15] MEDS ORDERED: XYLOCAINE-MPF 2% ONE (07:49)
[2016-08-15 09:43] LABS: HIV ANTIBODY SCREEN SEE COMMENTS
--- NOTE | 2016-08-15 10:29 | Diag Imaging Result Doc PS360 ---
GI SERIES WITH BA SWALLOW - 08/15/2016 INDICATION: probable paraesophageal hernia on EGD TECHNIQUE: Total fluoroscopy time was two minutes two seconds. 45 images were obtained. COMPARISON: Small bowel exam 08/14/2016 FINDINGS: There is normal swallowing mechanism. No evidence of hiatal hernia. The gastroesophageal junction is normally positioned. The stomach, duodenum, and proximal small bowel are normal. IMPRESSION: Negative exam. Electronically signed by Richard Serna 08/15/2016 10:26 AM
[2016-08-15 10:45] LABS: HEPATITIS PROFILE ACUTE SEE COMMENTS
[2016-08-15] MEDS: REGLAN IV PRN (10:49)
[2016-08-15 13:55] VITALS: BP 116/69
[2016-08-15] MEDS: NS 1,000 ML IV SCH (14:23)
[2016-08-15] MEDS ORDERED: ULTRAM PO PRN (14:44)
--- NOTE | 2016-08-15 15:00 | PROGRESS NOTE ---
DATE: 08/15/2016 SUBJECTIVE: Ms. Juares was sleeping and she was easy to arouse but was sleeping soundly and breathing comfortably. OBJECTIVE: Vital signs: Temperature 98.1 degrees, pulse 90, respirations 18, blood pressure 118/69, CVP less than 6 cm. Lungs: Clear in all lung carrington. Cardiovascular: Regular rhythm and rate without murmur or S3. Abdomen: Soft. Skin: Is warm and dry. Urine output was over 3 L. LAB: White count 9410, hematocrit 34, platelet count 398,000. Chemistry, sodium 139, potassium 3.8, chloride 105, BUN 9, creatinine 0.6, magnesium 1.7, calcium 8.6. T4 was 0.78 but TSH was 3.90. ASSESSMENT AND PLAN: 1. Periumbilical abdominal pain, nausea and vomiting. She got a small bowel followthrough and it was unremarkable. She has had an ulcer, an EGD back in September 2015 but not significant enough to count for this abdominal pain. She may need a repeat EGD, Dr. Lopez is following. 2. Insomnia. Weight loss. T4 and TSH unremarkable. 3. Unplanned weight loss. We did check lab, hepatitis profile, HIV was nonreactive. Hepatitis profile was all nonreactive, hepatitis B surface, B core, [employer]OL [employer]. Of course her upper gastrointestinal and barium swallow were negative so will monitor p.o. intake, encourage her to eat. I explained her do not want her on any pain medications for this abdominal pain or opioid so plan to diminish this and she was sleeping when I came in. cc: Joe Clark MD
--- NOTE | 2016-08-15 15:09 | OPERATIVE NOTE ---
PROCEDURE DATE: 08/15/2016 REFERRING PHYSICIAN: Dr. Joe Clark M.D. INDICATIONS FOR PROCEDURE: 1. Nausea with vomiting. 2. Epigastric pain. 3. Diarrhea. 4. History of peptic ulcer disease. PROCEDURE PERFORMED: Esophagogastroduodenoscopy with biopsy. CONSENT: Informed consent was obtained from the patient prior to the procedure. The risks, benefits, and alternatives were discussed. MEDICATIONS: The patient received monitored anesthesia care. PERFORMING PHYSICIAN: Ly Lopez M.D. ASSISTANTS: 1. [facility] 2. Mellisa García RN. 3. Angelina Franklin CRNA. 4. Weston Rain M.D. (anesthesia). 5. Student observer: Alice Chowdhury MS3. COMPLICATIONS: None. ESTIMATED BLOOD LOSS: 1-2 mL. SPECIMENS REMOVED: 1. Duodenal biopsy. 2. Gastric biopsy. FINDINGS: After sedation was achieved, the upper endoscope was inserted to the 2nd portion of the duodenum. The hypopharynx and tubular esophagus appeared endoscopically normal. The tubular esophagus was normal. There was a Schatzki's ring at the GE junction. There was grade A erosive esophagitis when the Schatzki's ring relaxed. The GE junction was present at 40 cm from the incisors. There was a hiatal hernia from 40-44 cm. In the gastric lumen, there was erosive gastritis. In the antrum, there was a superficial whitish based ulcer with no stigmata of bleeding. On retroflexed view, the patient had a small fundic gland polyp. Her fundus appeared to be above the diaphragm consistent with or suggestive of a paraesophageal hernia. On forward view, the pylorus appeared normal. The duodenum was markedly inflamed consistent with severe duodenitis. In the distal esophagus, there was no evidence of esophageal varices. There was no evidence of Sparrow's mucosa. In the gastric fundus, there was no evidence of varus or gastric varices. After the exam was complete and biopsies were taken, the lumen was decompressed and the scope was removed without incident. IMPRESSION: 1. Schatzki's ring. 2. Hiatal hernia. 3. Grade A erosive esophagitis. 4. Erosive gastritis. 5. Antral ulcer. 6. Fundic gland polyp. 7. Possible paraesophageal hernia versus hiatal hernia. 8. Severe duodenitis. RECOMMENDATION: 1. Await endoscopic biopsies. 2. Continue Carafate. 3. Continue Protonix, both of which have been initiated this admission. 4. Check an upper GI to assess for paraesophageal hernia. 5. Follow up with Dr. Clark and her local GI physician. 6. We will sign off. Thank you. cc: Ly Lopez [facility]
[2016-08-15] MEDS: SODIUM CHLORIDE 0.9% INJ SCH (16:50)
[2016-08-15] MEDS ORDERED: G.I. COCKTAIL PO ONE (19:55)
--- NOTE | 2016-08-16 16:33 | DISCHARGE SUMMARY ---
ADMISSION DATE: 08/13/2016 DISCHARGE DATE: 08/15/2016 HOSPITAL COURSE: She presented with a history of weight loss, with nausea and nonspecific abdominal pain. Her labs were unremarkable. I did get a GI consultation. There was a questionable history of Crohn's disease in the past. She remained pretty lethargic. We had her on a dose of morphine. We aroused her on 08/15/2016 from sleep. She stated she was not sleeping and that she still had bad abdominal pain. I explained that we needed to stop the morphine and see how we did clinically with the abdominal pain and consider whether she needed endoscopy at which point I was going to put her on tramadol and she left AMA. cc: Joe Clark MD
--- NOTE | 2016-08-18 06:20 | EKG Report ---
Test Performed on : 08/15/2016 5:24:07 PM Test Reason : CP Blood Pressure : / mmHG Vent. Rate : 093 BPM Atrial Rate : 093 BPM P-R Int : 156 ms QRS Dur : 078 ms QT Int : 346 ms P-R-T Axes : 057 003 029 degrees QTc Int : 430 ms Normal sinus rhythm. Cannot rule out Inferior infarct , age undetermined Cannot rule out Anterior infarct , age undetermined Abnormal ECG When compared with ECG of 14-AUG-2016 03:27, No significant change was found Confirmed by Roni CASTILLO, Wilmer Miles ([id number]) on 08/19/2016 2:14:21 PM
== END 2016-08-15 20:15 | disposition left against medical advice (07) ==
LOC: ED 12:32 → 4N 17:48
PROVIDERS: ATTEND Emergency Medicine

== ENCOUNTER 2016-08-17 14:14 | Inpatient (IN) ==
[2016-08-17] MEDS ORDERED: MORPHINE IV ONE ×2 (14:40→18:29)
[2016-08-17] MEDS ORDERED: NS 1,000 ML IV ONE (14:40)
[2016-08-17] MEDS ORDERED: REGLAN IV ONE (14:40)
[2016-08-17 15:55] LABS: UR AMPHETAMINES QUAL NONE DETECTED (NONE DETECT); UR BARBITUATES QUAL NONE DETECTED (NONE DETECT); UR BENZODIAZEPIN QUAL PRESUMPTIVE POSITIVE (NONE DETECT); UR CANNABINOIDS QUAL NONE DETECTED (NONE DETECT); UR COCAINE QUAL NONE DETECTED (NONE DETECT); UR METHADONE QUAL NONE DETECTED (NONE DETECT); UR OPIATES QUAL NONE DETECTED (NONE DETECT); UR OXYCODONE QUAL NONE DETECTED (NONE DETECT); UR PCP QUAL NONE DETECTED (NONE DETECT)
[2016-08-17 16:11] LABS: MANUAL DIFF NEEDED? NO
[2016-08-17 16:19] LABS: URINE CULTURE NEEDED? NO; URINE MICRO REVIEW NEEDED? NO; URINE SOURCE CATH
[2016-08-17 16:22] LABS: BILIRUBIN URINE NEGATIVE (NEGATIVE); BLOOD URINE NEGATIVE (NEGATIVE); COLOR YELLOW; GLUCOSE URINE NEGATIVE (NEGATIVE); LEUKOCYTES URINE NEGATIVE (NEGATIVE); NITRITE URINE NEGATIVE (NEGATIVE); PH URINE 6.5; PROTEIN URINE NEGATIVE (NEGATIVE); SP GRAVITY URINE 1.024; TURBIDITY URINE CLEAR (CLEAR); UROBILINOGEN URINE NORMAL (NORMAL)
[2016-08-17 16:23] LABS: UR EPITHELIAL CELLS <10 /HPF (<10); URINE BACTERIA NEGATIVE /HPF; URINE RBC <10 /HPF (<10); URINE WBC <10 /HPF (<10)
[2016-08-17 16:23] LABS: BASO% 0.4 % (0.0-0.8); EOS# 0.13 X1000 (0.0-0.7); EOS% 1.8 % (0.0-10.0); HEMATOCRIT 36.9 % (37.0-47.0); HEMOGLOBIN 12.3 g/dL (12.0-16.0); LYMPH# 2.08 X1000 (1.2-3.4); LYMPH% 28.6 % (20.5-51.1); MCH 33.3 PG (27-31); MCHC 33.3 g/dL (33-37); MONO# 0.56 X1000 (0.11-0.59); MONO% 7.7 % (1.7-9.3); MPV 9.4 FL (7.4-10.4); NEUT% 61.5 % (42.2-75.2); PLT 464 X1000 (130-400); RBC 3.69 XMIL (4.2-5.4)
[2016-08-17 16:28] LABS: AGAP 10; ALBUMIN 3.9 g/dL (3.5-5.0); ALKALINE PHOSPHATASE 73 U/L (32-104); AMYLASE 94 U/L (20-200); BUN 10 mg/dL (8-22); CALCIUM 8.6 mg/dL (8.8-10.2); CHLORIDE 98 mmol/L (98-107); COSMO 270; GOT 13 U/L (10-30); GPT < 5 U/L (10-36); LIPASE 47 U/L (13-60); POTASSIUM 4.4 mmol/L (3.5-5.1); SODIUM 136 mmol/L (136-145); TCO2 28 mmol/L (25-35); TOTAL PROTEIN 6.9 g/dL (6.3-8.3)
[2016-08-17] MEDS ORDERED: PHENERGAN IM ONE (16:52)
--- NOTE | 2016-08-17 17:01 | Diag Imaging Result Doc PS360 ---
FLAT/UPRIGHT ABD/1 VIEW CHEST - 08/17/2016 INDICATION: Abd pain TECHNIQUE: Three views COMPARISON: 08/14/2016 FINDINGS: The chest is clear. There is a nonobstructive bowel gas pattern. There are stable phleboliths in the pelvis. No pathologic calcifications. No free air. IMPRESSION: No acute disease or change from prior. Electronically signed by Richard Serna 08/17/2016 4:59 PM
--- NOTE | 2016-08-17 17:19 | PROVIDER DOCUMENTATION ---
This chart was entered by Nancy Sauceda Scribe, acting as scribe for Cortney Kaur MD. HPI-Abdominal Pain/GI Problem - General Chief Complaint: Abdominal Pain Stated Complaint: ABD pain/N/V/D Time Seen by Provider: 08/17/16 14:21 Source: patient Allergies/Adverse Reactions: Patient Allergies Allergy/AdvReac Type Severity Reaction Status Date / Time meperidine HCl * Allergy "made me Verified 08/17/16 14:43 [From Demerol] feel like I'm going crazy" Home Medications: Home Medication List Medication Instructions Recorded Confirmed Last Taken Type Omeprazole 40 mg PO DAILY 04/27/16 08/17/16 3 Days Ago History - History of Present Illness-ABD Nature of Presenting Problems: 51 yo F presents to the ER with complaint of abdominal pain, pt states the pain started x2 weeks ago. Pt was admitted here through the hospitalist last week, states GI doctor is Dr. Lopez so it is easier to come here. Pt left AMA two days ago because she "got fed up with Dr. Clark because he would not give her any medication and she was in pain". States Dr. Lopez performed an endoscopy and they told her she had a hiatal hernia, was supposed to do a procedure the next day but she left. Pt reports she has lost 40 pounds in 6 months. Abdominal Pain Onset Location: reports: generalized abdomen Pain Radiation: reports: no radiation Onset/Duration: reports: 1 week ago Associated Symptoms: reports: diarrhea, nausea, vomiting Review of Systems - Adult - REVIEW OF SYSTEMS - ADULT Constitutional: denies: chills, fever Eyes: reports: no symptoms reported Ears, Nose, Mouth & Throat: reports: no symptoms reported Cardiovascular: denies: chest pain, palpitations Respiratory: denies: cough, shortness of breath Gastrointestinal: reports: abdominal pain, diarrhea, nausea, vomiting. denies: constipation Genitourinary: reports: no symptoms reported Musculoskeletal: reports: no symptoms reported Integumentary: reports: no symptoms reported Neurological: reports: no symptoms reported Psychiatric: reports: no symptoms reported Endocrine: reports: no symptoms reported Hematologic/Lymphatic: reports: no symptoms reported Allergic/Immunologic: reports: no symptoms reported All Other Systems: Reviewed and Negative Past History - Adult - PAST MEDICAL HISTORY-ADULT Review of Records: reports: Nursing Assessment Review, Medications Reviewed Gastrointestinal: reports: Crohn's, IBS Genitourinary: reports: kidney stones - PRIOR SURGERIES/PROCEDURES Surgical/Procedure History: reports: appendectomy, tonsillectomy, other ( lithotripsy) - IMMUNIZATION STATUS Childhood Immunizations: See Nurse Assessment Flu Vaccine: See Nurse Assessment Physical Exam-General - PHYSICAL EXAM-ADULT Initial Vital Signs Reviewed: Yes - CONSTITUTIONAL General Appearance: alert, no apparent distress - EYES Eyes: PERRL/EOMI, pink conjunctivae - HEAD, EARS, NOSE, MOUTH & THROAT HENMT: normocephalic/atraumatic, normal ENT inspection - NECK Neck: supple, normal inspection - RESPIRATORY Respiratory: no respiratory distress, no accessory muscle use - CARDIOVASCULAR Cardiovascular: normal peripheral pulses, regular rate, rhythm - GASTROINTESTINAL (ABDOMEN) Abdominal Exam: soft, abnormal bowel sounds (hyperactive), tenderness ( generalized) - MUSCULOSKELETAL Back Exam: no CVA tenderness, no vertebral tenderness Extremity: normal gait, normal inspection - SKIN Integumentary: normal color, warm/dry - NEUROLOGIC Neurologic: grossly normal, no motor/sensory deficits - PSYCHIATRIC Psych/Mental Status: normal mood/affect, normal thought content, normal thought process, oriented x 3 Progress - PLAN OF CARE/RESULTS Progress/Plan/Lab Results: Vital Signs - 8 hr 08/17/16 14:24 Temperature 99 F Pulse Rate 81 Respiratory Rate 17 Blood Pressure 144/82 O2 Sat by Pulse Oximetry 99 Result Diagrams: 08/17/16 14:40 08/17/16 14:40 - EKG 1 Time of EKG reading by physician:: 15:37 EKG Read and Signed by:: Cortney Kaur EKG Interpretation (*Must complete 3 of following elements*): Normal Rate: 77 Rhythm: normal sinus rhythm [place]: normal QRS: normal MD Interval: normal ST Wave: normal - CT/MRI 1 CT Study: Thorax Impression: Abnormal (B/l PE per Radiology. A+P WNL) - CONSULTS/PCP/HOSPITALIST Notification #1 *Consult/PCP/Hospitalist*: Dr. Beth Time Discussed: 18:05 Consult Disposition: Will see in ED, Admit - CHANGE OF SHIFT REPORT (ED Provider) Report Given and Care Transferred to:: Dr. Cordero Time of Transfer: 18:00 Items Pending: CT/MRI Results, Physician Consult/Arrival, Other (Dispo) Departure - Departure Date of Disposition Decision: 08/17/16 Time of Disposition Decision: 18:06 DIAGNOSIS: Pulmonary emboli, Abdominal pain Disposition: ADMITTED INPATIENT 09 Certified Medical Emergency: Emergent Condition: Stable Referrals and Follow-Ups: None,PCP [Primary Care Provider] - - Critical Care Note This patient required my direct & personal management of CC.: No This chart was documented by the indicated scribe, (Nancy Sauceda Scribe) and accurately reflects the services I performed and decisions made by me, Cortney Kaur MD, as attested by the provider's signature.
--- NOTE | 2016-08-17 17:48 | Diag Imaging Result Doc PS360 ---
ABD/PELVIS/PULM ARTERIES - 08/17/2016 INDICATION: Abd pain with abnormal EGD findings per pt TECHNIQUE: Axial CT images were obtained after administering intravenous contrast. Coronal MIP images were generated. A CT dose reduction protocol was used. COMPARISON: Numerous prior studies FINDINGS: CHEST: There are some scattered acute appearing pulmonary emboli in segmental arteries. These are present bilaterally. Most notably, in the right lower lobe and lingular pulmonary arteries. There is some patchy linear atelectasis. Granuloma in the left lower lobe. No adenopathy. Heart size is normal. No significant infiltrates. Abdomen pelvis: Stable mild nonspecific dilation of the vertical portion of the duodenum. Stable small focal stricture at the proximal ascending colon. No inflammatory changes or fluid collections. No free air. Stable cholecystectomy clips. Solid abdominal organs are normal. Stable phleboliths in the pelvis. There is ill-defined hypoenhancement of the cervix stable from prior. IMPRESSION: 1. Acute-appearing pulmonary emboli. 2. Mild stricture at the ascending colon. 3. Mild, long-standing dilation of the proximal duodenum, significance uncertain. 4. Stable long-standing hypoenhancement of the uterine cervix. Please make sure the patient is up-to-date on Pap smears. 5. Report was immediately called to the patient's physician in the emergency department. Electronically signed by Richard Serna 08/17/2016 5:46 PM
[2016-08-17] MEDS ORDERED: LOVENOX 1 MG/KG SUBQ ONE (18:14)
[2016-08-17] MEDS ORDERED: LOVENOX SUBQ ONE (18:30)
[2016-08-17] MEDS: MORPHINE IV PRN (21:39)
[2016-08-17] MEDS: CARAFATE LIQUID PO SCH (21:39)
[2016-08-17] MEDS: PROTONIX IV SCH (21:39)
[2016-08-17] MEDS: XANAX PO SCH (21:48)
[2016-08-18] MEDS: MORPHINE IV PRN ×5 (02:26→21:33)
[2016-08-18] MEDS: CARAFATE LIQUID PO SCH ×4 (02:26→21:30)
[2016-08-18] MEDS: NORCO-7.5 PO PRN ×2 (04:30→10:28)
--- NOTE | 2016-08-18 05:01 | HISTORY AND PHYSICAL ---
HISTORY OF PRESENT ILLNESS: Briefly, this is a 51-year-old female, just discharged, left AMA after evaluation for abdominal pain. She had severe abdominal pain. An EGD showed significant duodenitis and erosive gastritis. Reportedly, she has had Crohn's disease, rheumatoid arthritis, but she lost insurance and she has not had a lot of followup. Apparently, she had some issues with pain medication, with oversedation, and her narcotics were stopped because of concern of oversedation, and then the patient left AMA. She has come back today with pain. CT scan done in the ER showed multiple small PEs in segmental arteries, right lower lobe, and lingular. Otherwise, her abdominal CT was negative, except for a small focal stricture, which was stable. She has had numerous CTs in the past, which was mild, and she has had a longstanding dilation of her proximal duodenum, which is also persistent. Stable longstanding hypoenhancement of her uterine cervix. In any case, she was admitted for PE. No history of DVT in the past, she does report although 3 months ago she had swelling and an external which she felt was bug bite, that resolved. She does report some intermittent ankle swelling. PAST MEDICAL HISTORY: GERD, gastritis. Again, reports a history of Crohn's, which is not substantiated. History of rheumatoid arthritis, but I do not have definitive proof of that. PAST SURGICAL HISTORY: 1. Appendectomy. 2. Tonsillectomy. 3. Lithotripsy. 4. Tubal ligation. 5. Cholecystectomy. SOCIAL HISTORY: Does smoke marijuana. No alcohol. No tobacco. ALLERGIES: No known drug allergies. REVIEW OF SYSTEMS: Otherwise negative. Was reviewed, 11 systems. MEDICATIONS: She just takes Prilosec reportedly. PHYSICAL EXAMINATION: VITAL SIGNS: Blood pressure is 144/82, heart rate of 81, respiratory rate 17, temperature 99 degrees, 99% on room air. GENERAL: She is very thin female. She has mild distress. Her legs are drawn she up. She is moaning in pain. Pupils equal, round, reactive to light. Extraocular movements intact. EARS, NOSE, THROAT: Moist mucous membranes. NECK: Supple. CARDIOVASCULAR: Regular rate and rhythm. No murmurs, gallops, or rubs. PULMONARY: Bilateral breath sounds. Clear to auscultation. GASTROINTESTINAL: Soft, tender to palpation, just with mild palpation. Guarding immediately. Nondistended. Bowel sounds are positive. EXTREMITIES: No clubbing or cyanosis. LYMPHATICS: No peripheral edema. NEUROLOGICAL: Nonfocal. LABORATORY DATA: Hemoglobin and hematocrit 12 and 36. Normal white count. Normal CMP. Normal UA. Urine drug screen was positive for benzodiazepines, which I think she has had in the past. Her IBD screen was negative. Her HIV and hepatitis panel were unremarkable. PROBLEM LIST: This is a 51-year-old female presenting with subsegmental pulmonary emboli, without real clear etiology. 1. Pulmonary embolism. We will obviously anticoagulate. I am going to do a dedicated chest CT just to evaluate her other lung areas for pulmonary embolism, lower extremity venous Doppler. These are spontaneous, without a clear etiology. I am not sure what is causing them. They certainly could be a mechanism of her pain, but I am not entirely sure what to make out of it. She reports being up-to-date on her cancer screening, but I am not sure. There are some atypical features to her uterus on the CT scan, so we will get a dedicated pelvic ultrasound, and follow. 2. Abdominal pain is just kind of out of proportion of exam. She has had numerous CTs, and there is some concern over secondary gain with pain medication. Obviously, we will treat her pain, because she has a diagnosis that has significant pain associated with it, and she did have abnormalities on her endoscopy. We will treat those accordingly. There will obviously be some risk of bleeding, so we will need to monitor, but I think at this point we will have to anticoagulate this patient. 3. Gastroesophageal reflux disease/gastritis. Continue proton pump inhibitor and Carafate. We will let Dr. Lopez know about her patient, just to make sure that there are not any other things we need to be concerned about at this point, although I think again we will have to anticoagulate. 4. Disposition pending her clinical status. This is a service admission. cc: MD Ly De La Cruz MD
--- NOTE | 2016-08-18 05:43 | EKG Report ---
Test Performed on : 08/17/2016 3:37:15 PM Test Reason : Syncope/Re-Ordered Blood Pressure : / mmHG Vent. Rate : 077 BPM Atrial Rate : 077 BPM P-R Int : 154 ms QRS Dur : 080 ms QT Int : 404 ms P-R-T Axes : 068 011 024 degrees QTc Int : 457 ms Normal sinus rhythm. Normal ECG When compared with ECG of 15-AUG-2016 17:24, (Unconfirmed) No significant change was found Unconfirmed Result
[2016-08-18] MEDS: XANAX PO SCH ×2 (06:10→13:26)
[2016-08-18 06:20] LABS: HEMATOCRIT 35.1 % (37.0-47.0); HEMOGLOBIN 11.4 g/dL (12.0-16.0); MCH 32.4 PG (27-31); MCHC 32.5 g/dL (33-37); MCV 99.7 FL (81-99); RBC 3.52 XMIL (4.2-5.4)
[2016-08-18 06:48] LABS: AGAP 13; ALBUMIN 3.4 g/dL (3.5-5.0); ALKALINE PHOSPHATASE 69 U/L (32-104); BUN 7 mg/dL (8-22); CALCIUM 8.6 mg/dL (8.8-10.2); CHLORIDE 102 mmol/L (98-107); COSMO 275; GOT 13 U/L (10-30); GPT 5 U/L (10-36); POTASSIUM 3.5 mmol/L (3.5-5.1); SODIUM 139 mmol/L (136-145); TCO2 24 mmol/L (25-35); TOTAL BILIRUBIN 0.22 mg/dL (0.20-1.00); TOTAL PROTEIN 6.1 g/dL (6.3-8.3)
--- NOTE | 2016-08-18 08:39 | Diag Imaging Result Doc PS360 ---
EXAM: ANGIOGRAM/PULMONARY ARTERIES HISTORY: pe TECHNIQUE: CT of the chest with intravenous contrast with dose reduction (clarity.) COMMENT: There is some motion artifact. The filling defect in an upper lobe segmental artery on the left side on image 64 on both the previous and current studies is again noted. There is a segmental embolus in the anterior right lower lobe on image 81 which was present previously. There is a small low saddle embolus bridging to segmental branches in the right lower lobe on image 85. This was also present at the time the previous study. The aorta is unchanged in appearance. There are no abnormal fluid collections. The partially calcified nodular opacity in the left lower lobe is again noted. A similar appearing slightly irregular nodule is present anteriorly and laterally in the left lower lobe on image 124 which was also present previously. Some pleural-based nodularity is seen anteriorly in the left hemithorax which is unchanged in appearance. There is no evidence of significant adenopathy. IMPRESSION: Stable pulmonary emboli. Otherwise stable CT of the chest. Electronically signed by Nelson Norris 08/18/2016 8:36 AM
--- NOTE | 2016-08-18 09:17 | Diag Imaging Result Doc PS360 ---
EXAM: US PELVIC NON-AUTOMOTIVE SERVICE WRITER COMPLETE HISTORY: abnormal uterus TECHNIQUE: Transabdominal and endovaginal COMMENT: The uterus is 7.6 x 4.6 x 3.4 cm with an endometrial stripe measuring 7 mm. In the lower uterine segment there is a inhomogeneous area of thickening of the endometrium measuring 1.9 cm x 0.8 cm. There is a nabothian cyst. The ovaries are unremarkable. There is a minimal amount of free fluid in the cul-de-sac. IMPRESSION: Focal endometrial thickening as described. Further evaluation is recommended. Electronically signed by Nelson Norris 08/18/2016 9:14 AM
[2016-08-18] MEDS: LOVENOX SUBQ SCH ×2 (09:23→21:31)
[2016-08-18] MEDS: PROTONIX IV SCH ×2 (09:24→21:30)
[2016-08-18] MEDS: SODIUM CHLORIDE 0.9% INJ SCH ×2 (09:24→21:30)
[2016-08-18] MEDS ORDERED: ZOFRAN IV PRN (15:02)
[2016-08-18] MEDS ORDERED: TYLENOL PO PRN (15:02)
[2016-08-18] MEDS ORDERED: ZOFRAN IV ONE (15:02)
[2016-08-18] MEDS: XANAX PO PRN (17:50)
--- NOTE | 2016-08-18 17:57 | PROGRESS NOTE ---
DATE: 08/18/2016 SUBJECTIVE: Patient has no focal complaints except severe abdominal pain which is unremitting. OBJECTIVE: Vital Signs: Blood pressure 139/79, heart rate 79, respiratory rate 20, temperature 98.4 degrees, 97% on room air. Cardiovascular: Regular rate and rhythm Pulmonary: Bilateral breath sounds. Clear to auscultation. Gastrointestinal: Abdomen soft, nontender, nondistended. Bowel sounds are positive. LABORATORY DATA: White count 9.5, hemoglobin and hematocrit 11 and 35. Platelets 394,000. CMP looked okay. PROBLEM LIST: 1. Pulmonary embolus. We will continue Lovenox. Because of her uninsured status she will have to do Coumadin so I am going to initiate that and follow clinically. Hypercoagulable workup is in play. I do not have a great source for this. I think her lower extremity Dopplers were reportedly negative. She will need outpatient colonoscopy and I think follow up with ASSET MANAGER just to ensure that there are no other etiologies. 2. Abdominal pain. It is kind of nonspecific. She has had gastritis and duodenitis based on her most recent EGD. She is on PPI and Carafate. Dr. Lopez has been consulted. Further recommendations forthcoming. I am going to anticoagulate her though obviously, and we will monitor for any bleeding. 3. Anxiety. We will continue her anxiolytic medications and follow. cc: Kushal Beth MD
[2016-08-18 18:55] LABS: INR 0.96
[2016-08-18] MEDS: ZOFRAN IV PRN (21:30)
[2016-08-18] MEDS: COUMADIN PO SCH (21:39)
[2016-08-19] MEDS: MORPHINE IV PRN ×6 (01:17→21:23)
[2016-08-19] MEDS: ZOFRAN IV PRN ×6 (01:17→21:23)
[2016-08-19] MEDS: CARAFATE LIQUID PO SCH ×4 (05:27→21:21)
[2016-08-19] MEDS: XANAX PO PRN ×3 (06:46→21:31)
[2016-08-19 06:48] LABS: HEMATOCRIT 38.1 % (37.0-47.0); HEMOGLOBIN 12.7 g/dL (12.0-16.0); MCH 32.7 PG (27-31); MCHC 33.3 g/dL (33-37); MCV 98.2 FL (81-99); MPV 8.8 FL (7.4-10.4); RBC 3.88 XMIL (4.2-5.4)
[2016-08-19 06:56] LABS: INR 0.97; PROTIME 10.2 Seconds (9.2-11.7)
[2016-08-19 07:03] LABS: AGAP 13; BUN 7 mg/dL (8-22); CALCIUM 9.2 mg/dL (8.8-10.2); CHLORIDE 100 mmol/L (98-107); COSMO 278; POTASSIUM 3.8 mmol/L (3.5-5.1); SODIUM 140 mmol/L (136-145); TCO2 27 mmol/L (25-35)
[2016-08-19] MEDS: SODIUM CHLORIDE 0.9% INJ SCH ×3 (08:05→21:21)
[2016-08-19] MEDS: PROTONIX IV SCH ×2 (08:26→21:21)
[2016-08-19] MEDS: LOVENOX SUBQ SCH ×2 (08:27→21:22)
--- NOTE | 2016-08-19 15:24 | PROGRESS NOTE ---
DATE: 08/19/2016 SUBJECTIVE: Today, Ms. Juares refers to be doing a little better. Continues to have some abdominal discomfort. OBJECTIVE: Vital signs: Blood pressure is 140/84, pulse of 94, respirations 18 , temperature 98.3 degrees. General: Ms. Juares is a 51-year-old female. She looks undernourished. She is in bed, does not seems to be in any cardiopulmonary distress. HEENT: Mucosa pink and moist. Anicteric. Acyanotic. Neck: Supple. Chest: Good air entry bilaterally. No crepitations. Cardiovascular: Regular rate and rhythm. Abdomen: Soft. Mildly tender in the epigastrium. LABORATORY DATA: WBC is 7.42, hemoglobin is 12.7, platelet count of 480,000. Chemistry is reviewed and completely unremarkable. ASSESSMENT: 1. Pulmonary embolism, bilateral. Patient is currently on both Lovenox and being bridged with Coumadin. 2. Epigastric pain, likely due to underlying gastritis and duodenitis. 3. Anxiety disorder. Noted. 4. History of Crohn's and rheumatoid arthritis. In general, we are going to continue with the PPI, also continue with the Coumadin and Lovenox for today, get the INR therapeutic, and hopefully discharge the patient soon. cc: MD Kushal Batres MD MTDD
[2016-08-19] MEDS: COUMADIN PO SCH (21:21)
--- NOTE | 2016-08-19 23:33 | CONSULTATION ---
DATE OF CONSULTATION: 08/18/2016 REFERRING PHYSICIAN: Ced Beth M.D. INDICATION FOR CONSULTATION: 1. Abdominal pain. 2. Gastroesophageal reflux disease. 3. Gastritis. 4. Duodenitis. 5. Possible history of Crohn disease. HISTORY OF PRESENT ILLNESS: The patient is a 51-year-old white female who was evaluated last admission. She presented with nausea with vomiting and abdominal pain. She underwent an EGD on 08/15/2016 that was remarkable for. 1. Schatzki ring. 2. Hiatal hernia. 3. Erosive gastritis. 4. Erosive esophagitis. 5. Antral ulcer. 6. Fundic gland polyp. 7. Hiatal hernia. 8. Severe duodenitis. Her biopsies are currently pending. She was placed on Carafate and Protonix. Unfortunately, the patient continued to have abdominal pain and was not pleased with the amount of pain medication she was receiving. She left AMA on 08/16/2016. She returned to the emergency room on 08/17/2016 with shortness of breath. She was found to have bilateral pulmonary emboli and is currently readmitted. She is now on anticoagulation. From a GI perspective, she states that her abdominal pain is better on the Carafate and Protonix. She continues to have some abdominal discomfort. She initially had wanted a repeat colonoscopy. However, she is now on anticoagulation with acute pulmonary emboli. We are asked to participate in her care. PAST MEDICAL HISTORY: 1. She reports a history of Crohn disease that was diagnosed by a digital strategy specialist in [place]. She was previously on Humira but has not been able to afford it since she lost her health care insurance. She reports 4-5 watery bowel movements per day at baseline since she has been off of the Humira. 2. She reports a history of rheumatoid arthritis. 3. Chronic pain syndrome. 4. Kidney stones. 5. Gastroesophageal reflux disease. 6. History of peptic ulcer disease. 7. Duodenal ulcer in September 2015. 8. Severe erosive gastritis in September 2015. 9. Schatzki ring June 2016. 10. Hiatal hernia June 2016. 11. On EGD on 08/15/2016 she was found to have a Schatzki ring, hiatal hernia, erosive gastritis, erosive esophagitis, antral ulcer, fundic gland polyp and severe duodenitis. PAST SURGICAL HISTORY: 1. Appendectomy. 2. Tonsillectomy. 3. Lithotripsy. 4. Cholecystectomy. SOCIAL HISTORY: The patient denies alcohol, tobacco or recreational drug use. However, in the past her urine tox screens have been positive for marijuana, opioids, oxycodone , PCP, amphetamines and benzodiazepines. FAMILY HISTORY: Negative for colon cancer and colon polyps. MEDICATION ALLERGIES: 1. Demerol. 2. Zofran. MEDICATIONS: At the time of admission omeprazole 40 mg 1 p.o. daily. PHYSICAL EXAM: General: She is in no acute distress. Vital signs: Her blood pressure is 139/79, pulse 79, respiration 20, pulse of 98. HEENT: Negative for jaundice. Her oropharyngeal mucosa membranes are moist. Pulmonary: Lungs are clear to auscultation with normal expiratory effort. Cardiovascular Exam: Reveals regular rate and rhythm with no murmurs, gallops, or rubs. Abdominal Exam: Reveals mild diffuse tenderness but no rebound or guarding. There is interval improvement in her abdominal pain. Extremities: Bilaterally are negative for cyanosis, clubbing, or edema. OBJECTIVE DATA: Reveals a hemoglobin of 11.4 with hematocrit of 35.1 and a white count of 9.55 with 394,000 platelets. Her PT is 10.0 with an INR 0.96. Sodium is 139, potassium 3.5, chloride 102, CO2 of 24, BUN 7, creatinine 0.6 with a glucose of 98. Calcium is 8.6, total bilirubin 0.22, AST 13, ALT 5, alkaline phosphatase 69, total protein 6.1, albumin 3.9. IMPRESSION: 1. Bilateral pulmonary emboli. 2. Chronic abdominal pain. 3. Gastrointestinal history as noted above. RECOMMENDATION: 1. We were considering performing a colonoscopy to further evaluate the patient' s abdominal pain. However, she left against medical advice but has now been readmitted. In light of her acute pulmonary emboli, any GI evaluation will have to be deferred for 6-9 months until such time she has been cleared by Hematology-Oncology and pulmonary to undergo endoscopic evaluation. 2. Continue Protonix 40 mg IV q.12 hours. 3. Complete the 12 week course of Carafate 1 g p.o. 4 times a day. 4. She should follow up with her digital strategy specialist in [place], [place]. 5. We will sign off at this time. Thank you for allowing us to participate in her care. cc: MD Kushal Burdick MD [facility]
[2016-08-20] MEDS: CARAFATE LIQUID PO SCH ×4 (03:20→20:29)
[2016-08-20] MEDS: MORPHINE IV PRN ×5 (03:21→20:29)
[2016-08-20] MEDS: ZOFRAN IV PRN ×5 (03:21→20:30)
[2016-08-20] MEDS: XANAX PO PRN ×2 (04:15→13:32)
[2016-08-20 06:32] LABS: INR 1.18; PROTIME 12.5 Seconds (9.2-11.7)
[2016-08-20] MEDS: LOVENOX SUBQ SCH ×2 (09:12→20:30)
[2016-08-20] MEDS: SODIUM CHLORIDE 0.9% INJ SCH ×2 (09:12→20:30)
[2016-08-20] MEDS: PROTONIX IV SCH ×2 (09:12→20:30)
--- NOTE | 2016-08-20 12:11 | Extremity Venous Study ---
PROCEDURE NAME: Venous U/S Bilateral Legs - 08/18/2016 BILATERAL LOWER EXTREMITY VENOUS ULTRASOUND: REQUESTING PHYSICIAN: Dr. Kushal Beth. OIL FILTERS INSPECTOR: Estela. INDICATION: Pulmonary embolus. FINDINGS: The deep and superficial veins of bilateral lower extremities were visualized along their course. All veins compressible with forward flow. No evidence intraluminal thrombus. SUMMARY: No deep or superficial venous thrombosis seen in bilateral lower extremities. cc: MD Kushal Goncalves MD
--- NOTE | 2016-08-20 16:40 | PROGRESS NOTE ---
DATE: 08/20/2016 Today Ms. Juares refers to be doing a little better. Continues to have a lot of chest and epigastric pain. OBJECTIVE: Vital signs: Blood pressure is 122/87, pulse of 83, respirations 20, temperature is 98.4 degrees. General: Ms. Juares is a 51-year-old female. She is in bed, not in any distress. HEENT: Mucosa is pink and moist. Anicteric. Acyanotic. Neck: Supple. Chest: Clear. Cardiovascular: Regular rate and rhythm. Abdomen: Soft. Mildly tender in the epigastrium. Extremities: No pedal edema. ORDER PACKER OR PACKAGER: Patient is alert and oriented x4. There is no focal neurological deficit. LAB: There is no lab for this morning. ASSESSMENT: 1. Bilateral PE. Patient is on Lovenox been bridged with Coumadin. INR this morning was 1.18. The patient will get another dose of Coumadin tonight. 2. Epigastric pain likely due to underlying gastritis and duodenitis. We will continue with the PPI with also Carafate. 3. Anxiety disorder. Noted. 4. History of Crohn's and rheumatoid arthritis. Noted. So in general I think Ms. Juares is doing a lot better. I think her predisposing factors for a DVT is the history of smoking in the past which she just stopped in January and also the fact that she has underlying IBD which can also predispose to thrombotic events. She had thrombophilic workup sent to which we are still pending the results. Will be waiting the INR to be therapeutic to discharge her on Coumadin. cc: MD Kushal Batres MD
[2016-08-20] MEDS: COUMADIN PO SCH (20:30)
[2016-08-20] MEDS: ATIVAN IV PRN (22:44)
[2016-08-21] MEDS: CARAFATE LIQUID PO SCH ×4 (02:38→20:46)
[2016-08-21] MEDS: MORPHINE IV PRN ×5 (04:20→20:46)
[2016-08-21] MEDS: ZOFRAN IV PRN ×5 (04:21→20:46)
[2016-08-21] MEDS: ATIVAN IV PRN ×2 (04:38→09:42)
[2016-08-21 07:08] LABS: INR 1.3; PROTIME 13.9 Seconds (9.2-11.7)
[2016-08-21] MEDS: PROTONIX IV SCH ×2 (08:35→22:30)
[2016-08-21] MEDS: LOVENOX SUBQ SCH ×2 (08:35→20:45)
[2016-08-21] MEDS: SODIUM CHLORIDE 0.9% INJ SCH ×2 (08:35→08:37)
--- NOTE | 2016-08-21 13:11 | PROGRESS NOTE ---
DATE: 08/21/2016 SUBJECTIVE: Today Ms. Juares refers to be doing a little better. She said her pain is getting better managed. She is able to move around. She has been downstairs. My understanding is that last night there was an episode where she became unresponsive for a few minutes. According to her, she does not really remember what happened, but her who was at the bedside said this was what she used to be having as a stress seizure in the past. OBJECTIVE: Vital signs: Blood pressure is 134/80, pulse of 87, respirations 16 and temperature 97.8 degrees. General: Ms. Juares is a 51-year-old female. She is in bed, not in any remarkable distress. HEENT: Mucosa is pink and moist. Anicteric. Acyanotic. Neck: Supple. Chest: Clear. Cardiovascular: Regular rate and rhythm. Abdomen: Soft, minimally tender in the epigastrium. Extremities: No pedal edema. FAGOT MAKER: Patient is alert and oriented x4. There is no focal neurological deficit. LABS: No new lab work. ASSESSMENT: 1. Bilateral pulmonary embolism. Patient is on Lovenox being bridged with Coumadin. INR this morning is 1.30. We are going to give her 10 mg of Coumadin tonight and repeat her INR and make the changes accordingly. 2. Epigastric pain secondary to underlying gastritis and duodenitis, improving. 3. Anxiety disorder. 4. History of Crohn and rheumatoid arthritis noted. 5. History of situational seizures. I am not sure what that means, however patient refers that she had a neurologist at [facility] who told her she had that, but she is not on any antiseizure medication. I did explain to her that we are going to discontinue the intravenous lorazepam. cc: MD Kushal Batres MD [facility]
[2016-08-21] MEDS: XANAX PO PRN (18:32)
[2016-08-21] MEDS ORDERED: COUMADIN PO SCH (21:00)
[2016-08-22] MEDS: ZOFRAN IV PRN ×2 (01:25→06:09)
[2016-08-22] MEDS: MORPHINE IV PRN ×3 (01:25→10:07)
[2016-08-22] MEDS: CARAFATE LIQUID PO SCH ×5 (02:57→22:44)
[2016-08-22] MEDS: XANAX PO PRN ×3 (02:57→19:53)
[2016-08-22 07:03] LABS: INR 1.46; PROTIME 15.7 Seconds (9.2-11.7)
[2016-08-22] MEDS: NORCO-7.5 PO PRN ×2 (09:44→14:08)
[2016-08-22] MEDS: LOVENOX SUBQ SCH ×3 (09:45→22:44)
--- NOTE | 2016-08-22 15:12 | PROGRESS NOTE ---
DATE: 08/22/2016 SUBJECTIVE: Today, Ms. Juares refers to be hurting, so much so that she was even crying and her , who was at the bedside, was also collaborating her story, that she cries a lot. This is the same the patient who left AMA when Dr. Clark tried to readjust her morphine dose and she got mad. OBJECTIVE: Vital signs: Blood pressure is 118/70, pulse is 84, respirations 18 , temperature is 98.1 degrees. General: Ms. Juares is a 51-year-old female. She is in bed. She seems to be in some mild painful distress. HEENT: Mucosa is pink and moist. Anicteric. Acyanotic. Neck: Supple. Chest: Clear. Cardiovascular: Regular rate and rhythm. Abdomen: Soft. Extremities: No pedal edema. Central Nervous System: Patient is alert and oriented x4. LABORATORY DATA: INR is 1.46 with a PT of 15.7. ASSESSMENT: 1. Bilateral pulmonary emboli. Patient is on Coumadin and Lovenox. We are going to give her another 10 mg of Coumadin tonight. Hopefully, INR is a little better tomorrow. 2. Epigastric pain secondary to underlying gastritis and duodenitis. 3. Anxiety disorder. 4. History of Crohn's. 5. Rheumatoid arthritis. 6. History of situational seizures. 7. Musculoskeletal pain. The patient is very adamant and demanding of opioid medications to control her pain. The morphine has been discontinued. We are going to put her on Dilaudid 1 mg q.6. I have discontinued her [place] and started her on oxycodone and Celebrex. The intention is to discontinue the Dilaudid tomorrow, and continue only on the oral medications and maximize it before we discharge her when her INR is therapeutic. We have started her on Oxycodone and Celebrex. She is already on PPI and Carafate for her stomach issues. cc: MD Kushal Batres MD MTDD
[2016-08-22] MEDS: DILAUDID IV PRN ×2 (15:27→21:41)
[2016-08-22] MEDS: CELEBREX PO SCH (16:38)
[2016-08-22] MEDS: PERCOCET-10 PO PRN ×2 (19:11→23:28)
[2016-08-22] MEDS: COUMADIN PO SCH ×2 (19:53→22:44)
[2016-08-23] MEDS: DILAUDID IV PRN ×2 (03:36→09:38)
[2016-08-23] MEDS: CARAFATE LIQUID PO SCH ×2 (04:10→09:38)
[2016-08-23] MEDS: XANAX PO PRN ×2 (04:10→13:06)
[2016-08-23] MEDS: PROTONIX PO SCH ×2 (05:35→06:06)
[2016-08-23] MEDS: PERCOCET-10 PO PRN ×2 (06:20→10:33)
[2016-08-23 06:45] LABS: INR 2.23; PROTIME 24.6 Seconds (9.2-11.7)
[2016-08-23 07:57] VITALS: BP 93/61
[2016-08-23] MEDS: ZOFRAN IV PRN (09:37)
[2016-08-23] MEDS: CELEBREX PO SCH (09:38)
[2016-08-23] MEDS: LOVENOX SUBQ SCH (09:39)
--- NOTE | 2016-08-24 04:47 | DISCHARGE SUMMARY ---
ADMISSION DATE: 08/17/2016 DISCHARGE DATE: 08/23/2016 DISPOSITION: Home with home health. FOLLOWUP: Still pending licensed clinical social worker arrangement to get the patient a PCP. For now, I am willing to get results from the home health agency about her INR and make changes to her Coumadin accordingly for 1 month. CONSULTATION DURING THIS ADMISSION: GI was consulted. Patient was seen by Dr. Lopez. IMAGING STUDIES OF SIGNIFICANCE: 1. A CT scan of the abdomen and pelvis was done. It shows acute appearing pulmonary emboli, some mild stricture at the ascending colon. 2. A CTA was done which confirms stable pulmonary emboli, stable CT scan. ADMISSION DIAGNOSES: 1. Pulmonary embolism. 2. Abdominal pain. 3. Gastroesophageal reflux. DIAGNOSES AT THE TIME OF DISCHARGE: 1. Bilateral pulmonary emboli. 2. Epigastric pain secondary to underlying gastritis and duodenitis. 3. History of anxiety disorder. 4. History of Crohn's. 5. Rheumatoid arthritis. 6. Situational seizures. 7. Musculoskeletal pain. 8. Suspected prescription drug abuse. DISCHARGE MEDICATIONS: 1. Alprazolam 1 mg 3 times per day. 2. Celebrex 200 p.o. daily. 3. Pantoprazole 40 mg daily. 4. Carafate 1 g q.6 p.r.n. 5. Coumadin 5 mg daily. 6. Percocet 10 mg daily, 16 tablets was written. 7. Acetaminophen p.r.n. PRESENTING COMPLAINT: Abdominal pain. HISTORY OF PRESENTING COMPLAINT: Ms. Juares is a 51-year-old, female who left [facility] because her opiate medication was changed. Came back on 08/17/2016 because of worsening abdominal pain. Imaging studies revealed possible PE. The patient was admitted for further medical care. HOSPITAL COURSE: The patient did pretty well. Pain was controlled. Because she does not have any insurance, we had to bridge Lovenox with Coumadin for anticoagulation. INR was daily monitored and today it is 2.23 which is therapeutic so she is going to be discharged on 5 mg of Coumadin to be in the therapeutic range between 2-3. At the time of discharge, the patient still does not have any PCP. We will try and arrange for home health and I will be willing to follow her up for 1 month while she is looking for a physician for long-term. At the time of discharge, there is some genetic thrombophilic workup which is still pending, which patient has been advised to call for results. Time spent for discharge is 37 minutes. cc: MD Kushal Batres MD
== END 2016-08-23 13:57 | disposition home health service (06) ==
LOC: ED 14:14 → 4N 18:57 → SUATTDRO 18:57
PROVIDERS: ADMIT Internal Medicine; ATTEND Internal Medicine

== ENCOUNTER 2016-08-26 11:27 | Inpatient (IN) ==
[2016-08-26] MEDS ORDERED: DILAUDID IV ONE ×2 (12:03→18:18)
[2016-08-26] MEDS ORDERED: ZOFRAN IV ONE (12:03)
[2016-08-26] MEDS ORDERED: NS 1,000 ML IV ONE (12:03)
[2016-08-26 13:04] LABS: MANUAL DIFF NEEDED? NO; URINE CULTURE NEEDED? NO; URINE MICRO REVIEW NEEDED? NO; URINE SOURCE CLEAN CATCH
[2016-08-26 13:11] LABS: BASO% 0.4 % (0.0-0.8); EOS# 0.15 X1000 (0.0-0.7); EOS% 1.8 % (0.0-10.0); HEMATOCRIT 37.2 % (37.0-47.0); HEMOGLOBIN 12.2 g/dL (12.0-16.0); IMM GRAN# 0.02 X1000 (0.0-0.04); IMM GRAN% 0.2 % (0.0-0.5); LYMPH# 2.11 X1000 (1.2-3.4); LYMPH% 24.9 % (20.5-51.1); MCHC 32.8 g/dL (33-37); MCV 97.6 FL (81-99); MONO# 0.84 X1000 (0.11-0.59); MONO% 9.9 % (1.7-9.3); MPV 9.3 FL (7.4-10.4); NEUT% 62.8 % (42.2-75.2); PLT 315 X1000 (130-400); RBC 3.81 XMIL (4.2-5.4)
[2016-08-26 13:15] LABS: BILIRUBIN URINE NEGATIVE (NEGATIVE); BLOOD URINE NEGATIVE (NEGATIVE); COLOR YELLOW; GLUCOSE URINE NEGATIVE (NEGATIVE); LEUKOCYTES URINE NEGATIVE (NEGATIVE); NITRITE URINE NEGATIVE (NEGATIVE); PROTEIN URINE NEGATIVE (NEGATIVE); SP GRAVITY URINE 1.016; TURBIDITY URINE CLEAR (CLEAR); UROBILINOGEN URINE NORMAL (NORMAL)
[2016-08-26 13:16] LABS: UR EPITHELIAL CELLS <10 /HPF (<10); URINE BACTERIA 1+ /HPF; URINE RBC <10 /HPF (<10); URINE WBC <10 /HPF (<10)
[2016-08-26 13:25] LABS: AGAP 11; ALBUMIN 3.8 g/dL (3.5-5.0); ALKALINE PHOSPHATASE 69 U/L (32-104); AMYLASE 70 U/L (20-200); BUN 6 mg/dL (8-22); CALCIUM 9.2 mg/dL (8.8-10.2); CHLORIDE 99 mmol/L (98-107); COSMO 271; GOT 30 U/L (10-30); GPT 23 U/L (10-36); INR 3.47; LIPASE 24 U/L (13-60); PROTIME 39.5 Seconds (9.2-11.7); SODIUM 137 mmol/L (136-145); TCO2 27 mmol/L (25-35); TOTAL BILIRUBIN 0.19 mg/dL (0.20-1.00); TOTAL PROTEIN 6.7 g/dL (6.3-8.3)
--- NOTE | 2016-08-26 13:35 | Diag Imaging Result Doc PS360 ---
EXAM: FLAT/UPRIGHT ABD/1 VIEW CHEST HISTORY: pain recent discharge TECHNIQUE: Three views COMPARISON: 08/17/2016 FINDINGS: The lungs are well expanded. No cardiomegaly. No pneumonia. No free air beneath hemidiaphragm. No bowel obstruction. No organomegaly. The gallbladder has been removed. There are multiple pelvic calcifications believed to be phleboliths. IMPRESSION: No acute abnormality. Electronically signed by Warren Pereyra 08/26/2016 1:32 PM
[2016-08-26 14:49] LABS: ALLEN TEST YES; BE 5.5 mmoll (-3.0-3.0); BLOOD TYPE ARTERIAL; DRAW SITE L RADIAL; METHB 0.7 % (0.0-1.5); O2(CT) 15.4 mL/dL (15.0-23.0); PCO2(98.6) 42 mmHg (35-45); PO2(98.6) 72 mmHg (60-100); SAMPLE BLOOD; SAO2 98.4 % (95.0-100.0); THB 11.5 g/dL (11.5-17.4); pH(98.6) 7.46 (7.35-7.45)
[2016-08-26] MEDS ORDERED: XANAX PO ONE (14:55)
--- NOTE | 2016-08-26 15:14 | Diag Imaging Result Doc PS360 ---
EXAM: CT ABD/PELVIS W/ IV CONT ONLY HISTORY: severe pain after starting coumadin TECHNIQUE: Dose reduction protocol COMPARISON: 08/17/2016 FINDINGS: No change in the left lower lobe lung nodule with central calcification. The gallbladder has been removed. No focal hepatic abnormality. Normal spleen, pancreas, and adrenal glands. No renal masses. No hydronephrosis. Normal aorta. No bowel obstruction. The appendix has been removed. Questionable thickening to the wall of ascending colon. There are multiple benign pelvic calcifications. Urinary bladder is mild to moderately distended and appears normal. Normal uterus and ovaries. No free air. IMPRESSION: 1.No hemorrhage identified 2.Cholecystectomy 3.Possible thickening to the wall of the descending colon. Although this may simply be due to contraction and/or stool, further workup is recommended. Electronically signed by Warren Pereyra 08/26/2016 3:12 PM
[2016-08-26] MEDS ORDERED: MEFOXIN 1 GM/D5W 1 GM/50 ML IVPB IV ONE (15:34)
[2016-08-26] MEDS ORDERED: FLAGYL 500 MG/NS 500 MG/100 ML IVPB IV ONE (15:34)
--- NOTE | 2016-08-26 15:50 | PROVIDER DOCUMENTATION ---
This chart was entered by Johnny Henderson Scribe, acting as scribe for Natalie Littlejohn MD. HPI-Abdominal Pain/GI Problem - General Chief Complaint: N/V/D Stated Complaint: n/v Time Seen by Provider: 08/26/16 11:52 Source: patient Allergies/Adverse Reactions: Patient Allergies Allergy/AdvReac Type Severity Reaction Status Date / Time meperidine HCl * Allergy "made me Verified 08/26/16 12:09 [From Demerol] feel like I'm going crazy" Home Medications: Home Medication List Medication Instructions Recorded Confirmed Last Taken Type Alprazolam [Xanax] 1 mg PO TID PRN PRN #10 tablet 08/23/16 08/26/16 08/25/16 17: 30 Rx Celecoxib [Celebrex] 200 mg PO DAILY #30 capsule 08/23/16 08/26/16 Unknown Rx Oxycodone/APAP 10 mg/325 mg 1 each PO Q4H PRN PRN #16 tablet 08/23/16 08/26/16 08/25/16 17:30 Rx [Percocet-10] Pantoprazole [Protonix] 40 mg PO DAILY@0700 #60 tablet 08/23/16 08/26/16 17:30 Rx Sucralfate [Carafate Liquid] 1 gm PO Q6H #1 udc 08/23/16 08/26/16 Unknown Rx Warfarin [Coumadin] 5 mg PO QHS #30 tablet 08/23/16 08/26/16 08/25/16 17:30 Rx - History of Present Illness-ABD Nature of Presenting Problems: Patient is 51 y/o F that presents to the ER with n/v/d, coughing up blood/ shortness of breath, and back pain since last pm. Patient just was d/c home from hospital x 4 days ago after being treated for dvt and PE's. She has history of Crohns as well. Abdominal Pain Onset Location: reports: periumbilical Pain Radiation: reports: back Quality of Pain: reports: aching, cramping Severity in ED: reports: moderate Onset/Duration: reports: abrupt, last night Timing: reports: still present, constant Activities at Onset: reports: none Modifying Factors: worse with: movement Associated Symptoms: reports: cough, diarrhea, nausea, shortness of breath, vomiting. denies: chest pain, fever/chills, genitourinary problems Similar Symptoms Previously?: Yes Recently seen or treated by another doctor?: Yes Review of Systems - Adult - REVIEW OF SYSTEMS - ADULT Constitutional: denies: chills, fever Eyes: reports: no symptoms reported Ears, Nose, Mouth & Throat: reports: no symptoms reported Cardiovascular: denies: chest pain, orthopnea, palpitations, syncope Respiratory: reports: cough, hemoptysis, shortness of breath Gastrointestinal: reports: abdominal pain, diarrhea, nausea, vomiting. denies: constipation, rectal bleeding Genitourinary: reports: no symptoms reported Musculoskeletal: reports: back pain. denies: joint pain, neck pain Integumentary: reports: no symptoms reported Neurological: reports: no symptoms reported Psychiatric: reports: no symptoms reported Endocrine: reports: no symptoms reported Hematologic/Lymphatic: reports: no symptoms reported Allergic/Immunologic: reports: no symptoms reported All Other Systems: Reviewed and Negative Past History - Adult - PAST MEDICAL HISTORY-ADULT Review of Records: reports: Old Records Reviewed, Nursing Assessment Review, Medications Reviewed Cardiovascular: reports: blood clots Gastrointestinal: reports: Crohn's, IBS Genitourinary: reports: kidney stones - PRIOR SURGERIES/PROCEDURES Surgical/Procedure History: reports: appendectomy, tonsillectomy, other ( lithotripsy) - IMMUNIZATION STATUS Childhood Immunizations: See Nurse Assessment Flu Vaccine: See Nurse Assessment - FAMILY HISTORY Family History: reviewed, not pertinent - SOCIAL HISTORY Smoking: cigarettes, less than 1 pack/day Living Situation: family Physical Exam-General - PHYSICAL EXAM-ADULT Initial Vital Signs Reviewed: Yes - CONSTITUTIONAL General Appearance: alert, anxious (very very) - EYES Eyes: PERRL/EOMI, pink conjunctivae - HEAD, EARS, NOSE, MOUTH & THROAT HENMT: normocephalic/atraumatic, moist mucous membranes, normal ENT inspection - NECK Neck: full range of motion, normal inspection - RESPIRATORY Respiratory: lungs clear, normal breath sounds, no respiratory distress, no accessory muscle use - CARDIOVASCULAR Cardiovascular: no gallop, no murmur, tachycardia - GASTROINTESTINAL (ABDOMEN) Abdominal Exam: normal bowel sounds, non tender, soft, no organomegaly, no pulsatile mass - MUSCULOSKELETAL Extremity: normal range of motion, calf tenderness (mild right) - SKIN Integumentary: warm/dry, ecchymosis (due to lovenox injections to abdomen) - NEUROLOGIC Neurologic: dean of education II-XII nml as tested, no motor/sensory deficits - PSYCHIATRIC Psych/Mental Status: oriented x 3, anxious Progress - PLAN OF CARE/RESULTS Progress/Plan/Lab Results: Vital Signs - 8 hr 08/26/16 11:45 Temperature 98.4 F Pulse Rate 100 H Respiratory Rate 17 Blood Pressure 142/94 O2 Sat by Pulse Oximetry 100 1400-ct ordered due to increased pain and patient on coumadin. Vital Signs Temp Pulse Resp BP Pulse Ox 08/26/16 14:37 89 10 L 123/80 98 08/26/16 13:46 78 13 128/96 103 H 08/26/16 12:58 88 137/104 98 08/26/16 11:45 98.4 F 100 H 17 142/94 100 meperidine HCl * [From Demerol] Allergy (Verified 08/26/16 12:09) "made me feel like I'm going crazy" Alprazolam [Xanax] 1 mg PO TID PRN PRN #10 tablet 08/23/16 Celecoxib [Celebrex] 200 mg PO DAILY #30 capsule 08/23/16 Oxycodone/APAP 10 mg/325 mg [Percocet-10] 1 each PO Q4H PRN PRN #16 tablet 08/23 Pantoprazole [Protonix] 40 mg PO DAILY@0700 #60 tablet 08/23/16 Sucralfate [Carafate Liquid] 1 gm PO Q6H #1 udc 08/23/16 Warfarin [Coumadin] 5 mg PO QHS #30 tablet 08/23/16 Dietary Diet NPO Start ThuAug 26 1203 I&O 08/25/16 08/26/16 08/27/16 06:59 06:59 06:59 Output Total 60 / 60 Balance -60 / -60 Laboratory 08/26/16 08/26/16 08/26/16 14:40 12:51 12:51 WBC RBC Hgb Hct MCV MCH MCHC RDW Std Deviation Plt Count MPV Immature Gran % (Auto) Neut % (Auto) Lymph % (Auto) [place] % (Auto) Eos % (Auto) Baso % (Auto) Immature Gran # (Auto) Neut # (Auto) Lymph # (Auto) [place] # (Auto) Eos # (Auto) Baso # (Auto) PT 39.5 H D INR 3.47 D Specimen Type ARTERIAL Sample Site L RADIAL pH 7.46 H pCO2 42 pO2 72 HCO3 29.2 H Base Excess 5.5 H Oxyhemoglobin 95.1 ABG O2 Sat (Calculated) 15.4 ABG O2 Saturation 98.4 ABG Carboxyhemoglobin 2.70 H ABG Methemoglobin 0.7 Joe Test YES A-a O2 Difference 25.0 Total Hemoglobin 11.5 Lactate 0.70 FiO2 % 21.0 Sodium Potassium Chloride Carbon Dioxide Anion Gap BUN Creatinine Estimated GFR/1.73 m2 BUN/Creatinine Ratio Glucose Calculated Osmolality Calcium Total Bilirubin AST ALT Alkaline Phosphatase Total Protein Albumin Globulin Albumin/Globulin Ratio Amylase Lipase Urine Source CLEAN CATCH Urine Color YELLOW Urine Turbidity CLEAR Urine pH 7.0 Ur Specific [place] 1.016 Urine Protein NEGATIVE Ur Glucose (Stick) NEGATIVE Ur Ketones (Stick) NEGATIVE Urine Blood NEGATIVE Urine Nitrite NEGATIVE Urine Bilirubin NEGATIVE Urobilinogen Dipstick NORMAL Urine Leukocytes NEGATIVE Urine WBC (Auto) <10 Urine RBC (Auto) <10 U Epithel Cells (Auto) <10 Urine Bacteria (Auto) 1+ 08/26/16 08/26/16 12:51 12:51 WBC 8.47 RBC 3.81 L Hgb 12.2 Hct 37.2 MCV 97.6 MCH 32.0 H MCHC 32.8 L RDW Std Deviation 12.7 Plt Count 315 MPV 9.3 Immature Gran % (Auto) 0.2 Neut % (Auto) 62.8 Lymph % (Auto) 24.9 [place] % (Auto) 9.9 H Eos % (Auto) 1.8 Baso % (Auto) 0.4 Immature Gran # (Auto) 0.02 Neut # (Auto) 5.32 Lymph # (Auto) 2.11 [place] # (Auto) 0.84 H Eos # (Auto) 0.15 Baso # (Auto) 0.03 PT INR Specimen Type Sample Site pH pCO2 pO2 HCO3 Base Excess Oxyhemoglobin ABG O2 Sat (Calculated) ABG O2 Saturation ABG Carboxyhemoglobin ABG Methemoglobin Joe Test A-a O2 Difference Total Hemoglobin Lactate FiO2 % Sodium 137 Potassium 4.0 Chloride 99 Carbon Dioxide 27 Anion Gap 11 BUN 6 L Creatinine 0.5 Estimated GFR/1.73 m2 > 60 BUN/Creatinine Ratio 12 Glucose 94 Calculated Osmolality 271 Calcium 9.2 Total Bilirubin 0.19 L AST 30 ALT 23 Alkaline Phosphatase 69 Total Protein 6.7 Albumin 3.8 Globulin 2.9 Albumin/Globulin Ratio 1.3 Amylase 70 Lipase 24 Urine Source Urine Color Urine Turbidity Urine pH Ur Specific [place] Urine Protein Ur Glucose (Stick) Ur Ketones (Stick) Urine Blood Urine Nitrite Urine Bilirubin Urobilinogen Dipstick Urine Leukocytes Urine WBC (Auto) Urine RBC (Auto) U Epithel Cells (Auto) Urine Bacteria (Auto) Result Diagrams: 08/26/16 12:51 08/26/16 12:51 - XRAY 1 XRAY Study: Chest, Abdomen Impression: Normal XRAY Interpretation: NAP - CT/MRI 1 CT Study: Abdomen, Pelvis Impression: Abnormal CT Results: no hemorrhage, cholecystectomy, poss thickening to wall of desc colon - CONSULTS/PCP/HOSPITALIST Notification #1 *Consult/PCP/Hospitalist*: Time Discussed: 15:48 Reason/Comments: Maura PAYAN called , accepted for hospitalist Consult Disposition: Admit Departure - Departure Date of Disposition Decision: 08/26/16 Time of Disposition Decision: 15:48 DIAGNOSIS: Colitis, Intractable pain Disposition: ADMITTED INPATIENT 09 Certified Medical Emergency: Emergent Condition: Stable Referrals and Follow-Ups: None,PCP [Primary Care Provider] - - Critical Care Note This patient required my direct & personal management of CC.: No This chart was documented by the indicated scribe, (Johnny Henderson, Scribe) and accurately reflects the services I performed and decisions made by me, Natalie Littlejohn MD, as attested by the provider's signature.
[2016-08-26] MEDS ORDERED: DILAUDID ONE (17:01)
--- NOTE | 2016-08-26 17:27 | HISTORY AND PHYSICAL ---
PRIMARY CARE PROVIDER: Dr. Manohar Schrader. CHIEF COMPLAINT: Abdominal pain, diarrhea, shortness breath and back pain. HPI: Ms. Juares is a 51-year-old female who is well known to us who has presented to the ER with abdominal pain, hematochezia and back pain for 5 days. She was just released here 08/17/2016, she actually left AMA. After leaving AMA she returned and was diagnosed with pulmonary emboli and sent home on Coumadin therapy. She presents today with abdominal pain and back pain. Abdomen x-ray was done in the ED which revealed multiple pelvic calcifications and so CT abdomen, pelvis with IV contrast was done which showed thickened wall descending colon suggested colitis. Patient denies any fever, chills or body aches. Denies any blood in her urine or stool. She does report nausea, vomiting, the last emesis episode was last night she reports. Patient also states that she feels short of breath more so at night coughing frequently with blood tinged sputum. More difficulty sleeping at night due to the coughing. Consulted Dr. Lopez. PAST MEDICAL HISTORY: GERD, gastritis, anxiety. PAST SURGICAL HISTORY: 1. Appendectomy. 2. Tonsillectomy. 3. Lithotripsy. 4. Tubal ligation. 5. Cholecystectomy. SOCIAL HISTORY: The patient denies any alcohol abuse, does report smoking half a pack of cigarettes daily for 35 years. FAMILY HISTORY: She denies any family history of cancer, diabetes or hypertension. REVIEW OF SYSTEMS: 12-point review of systems negative except those mentioned above in the HPI. ALLERGIES: Demerol. HOME MEDICATIONS: Sucralfate 1 g p.o. q.6., Celebrex 200 mg p.o. daily, Coumadin 5 mg p.o. at night, Protonix 40 mg p.o. daily, Percocet 10/325 1 p.o. tablet q.4 p.r.n., Xanax 1 mg p.o. t.i.d. p.r.n. PHYSICAL EXAM: VITAL SIGNS: Blood pressure is 123/80, respiratory 13, heart rate 79, O2 saturation 98 on room air. GENERAL: Ms. Juares is a 51-year-old female and appears in no acute distress well- nourished and able to answer questions appropriately. HEENT: Atraumatic, normocephalic. Pupils equal, round, reacting to light. EOMs intact. Mucous membranes moist. NECK: Supple . No lymphadenopathy, trachea midline, no JVD noted, no bruits. CV: S1, S2 auscultated, regular rate and rhythm. No murmurs, gallops, or rubs. RESPIRATORY: Lung sounds clear, equal chest excursion, nonlabored respirations , no accessory muscle use noted. GI: Tender in all 4 quadrants. Bowel sounds auscultated in all 4 quadrants. No abdominal bruit noted. NEURO: CN 2-12 intact, alert and oriented x4. MUSCULOSKELETAL: Muscle strength is equal throughout. EXTREMITIES: Dorsalis pedis and radial pulses +2, no clubbing, cyanosis, edema noted . SKIN: Warm, dry, intact. No rashes, bruises, diaphoresis noted. LABS: White cell count 8, hemoglobin 12, hematocrit 37, platelets 315,000. Sodium 137, potassium 4.0, chloride 99, BUN 6, creatinine 0.5, glucose 94. IMAGIN. Abdominal x-ray showed multiple pelvic calcifications otherwise no acute disease. 2. CT abdomen and pelvis with IV contrast showed thickened wall of the descending colon suggests colitis. ASSESSMENT AND PLAN: 1. Possible colitis. Will start patient on Flagyl, Levaquin. Consult Dr. Lopez. 2. Bilateral pulmonary emboli. Patient has been taking Coumadin. Appears that she is supratherapeutic on her INR, will likely hold a 1 or 2 doses and monitor daily INRs. Patient also states that she has been having blood-tinged sputum more so at night when she is trying to sleep. Will monitor hemoglobin and hematocrit, hemoglobin and hematocrit is stable for now. 3. Abdominal pain and nausea. The patient is made NPO, antiemetics ordered and Dilaudid ordered for pain management. 4. Deep venous thrombosis prophylaxis. Has been Coumadin. Holding dose currently due to supratherapeutic INR. 5. Tobacco abuse. Cessation was discussed. Will hold off on nicotine patches due to use history of her pulmonary emboli. Dictated by ORA Nunes for Kushal Beth MD cc: MD Dr. Jhon Gallo pt examined, agree with above APENOT MTDD
[2016-08-26] MEDS ORDERED: DILAUDID IV PRN (17:33)
[2016-08-26] MEDS ORDERED: TYLENOL PO PRN (17:33)
[2016-08-26] MEDS ORDERED: PERCOCET-10 PO PRN (17:33)
[2016-08-26] MEDS ORDERED: ATIVAN IV PRN (18:20)
[2016-08-26] MEDS: ZOSYN 3.375 GM/NS 3.375 GM/50 ML IVPB IV SCH ×2 (18:31→22:32)
[2016-08-26] MEDS: CARAFATE LIQUID PO SCH ×2 (18:32→22:32)
[2016-08-26] MEDS: NS 1,000 ML IV SCH (18:32)
[2016-08-26] MEDS ORDERED: PNEUMOVAX 23 IM ONE (18:38)
[2016-08-26] MEDS: XANAX PO PRN (20:08)
[2016-08-26] MEDS: LEVAQUIN 500 MG/D5W 500 MG/100 ML IVPB IV SCH (20:08)
[2016-08-26] MEDS: ZOFRAN IV PRN (21:42)
[2016-08-26] MEDS: DILAUDID IV PRN (21:42)
[2016-08-26] MEDS: FLAGYL 500 MG/NS 500 MG/100 ML IVPB IV SCH (23:39)
[2016-08-27] MEDS: DILAUDID IV PRN ×7 (00:34→20:14)
[2016-08-27] MEDS: ZOFRAN IV PRN ×2 (03:27→09:43)
[2016-08-27] MEDS: NS 1,000 ML IV SCH ×3 (06:21→18:47)
[2016-08-27] MEDS: XANAX PO PRN (06:29)
[2016-08-27] MEDS: PROTONIX PO SCH (06:29)
[2016-08-27] MEDS: CARAFATE LIQUID PO SCH ×3 (06:30→18:46)
[2016-08-27] MEDS: FLAGYL 500 MG/NS 500 MG/100 ML IVPB IV SCH ×2 (06:31→13:37)
[2016-08-27] MEDS: ZOSYN 3.375 GM/NS 3.375 GM/50 ML IVPB IV SCH ×3 (06:31→18:46)
[2016-08-27 06:40] LABS: MANUAL DIFF NEEDED? NO
[2016-08-27 07:03] LABS: BASO% 0.3 % (0.0-0.8); EOS# 0.16 X1000 (0.0-0.7); EOS% 2.5 % (0.0-10.0); HEMATOCRIT 32.1 % (37.0-47.0); HEMOGLOBIN 10.3 g/dL (12.0-16.0); IMM GRAN# 0.02 X1000 (0.0-0.04); IMM GRAN% 0.3 % (0.0-0.5); LYMPH# 2.01 X1000 (1.2-3.4); LYMPH% 31.7 % (20.5-51.1); MCH 31.8 PG (27-31); MCHC 32.1 g/dL (33-37); MCV 99.1 FL (81-99); MONO# 0.56 X1000 (0.11-0.59); MONO% 8.8 % (1.7-9.3); MPV 9.4 FL (7.4-10.4); NEUT% 56.4 % (42.2-75.2); PLT 267 X1000 (130-400); RBC 3.24 XMIL (4.2-5.4)
[2016-08-27 07:09] LABS: PTT 39.2 Seconds (22.0-36.0)
[2016-08-27 07:10] LABS: INR 2.96; PROTIME 33.3 Seconds (9.2-11.7)
[2016-08-27 07:16] LABS: AGAP 10; ALBUMIN 3.3 g/dL (3.5-5.0); ALKALINE PHOSPHATASE 58 U/L (32-104); BUN 6 mg/dL (8-22); CALCIUM 8.5 mg/dL (8.8-10.2); CHLORIDE 104 mmol/L (98-107); COSMO 277; GOT 21 U/L (10-30); GPT 17 U/L (10-36); MAGNESIUM 1.6 mg/dL (1.5-2.7); POTASSIUM 4.1 mmol/L (3.5-5.1); SODIUM 140 mmol/L (136-145); TCO2 26 mmol/L (25-35); TOTAL BILIRUBIN 0.23 mg/dL (0.20-1.00); TOTAL PROTEIN 5.5 g/dL (6.3-8.3)
[2016-08-27] MEDS ORDERED: CELEBREX PO SCH (09:00)
[2016-08-27] MEDS ORDERED: XANAX PO PRN (14:25)
[2016-08-27] MEDS ORDERED: PERCOCET-10 PO PRN (14:26)
--- NOTE | 2016-08-27 16:24 | PROGRESS NOTE ---
DATE: 08/27/2016 SUBJECTIVE: Patient reports that she is feeling better. She reports having had vomiting 4-6 times yesterday, and today just one and reports no more diarrhea. No fever, but she reports still mild abdominal pain and pain in the back that started when she was diagnosed with pulmonary embolism. Denies any fever, chills. OBJECTIVE: Vital Signs: Temperature 98.4, heart rate 79, respiratory rate 98, blood pressure 96/63. O2 saturation 98% on room air. General Examination: This is a 51-year-old, female lying in bed, in no acute distress. HEENT: Head is normocephalic, atraumatic. Anicteric sclerae and pale conjunctivae. Mucous membranes moist. Neck: Supple. No JVD noted. No carotid bruits. No lymphadenopathy. No thyromegaly. Cardiovascular Exam: S1-S2 heard. No murmurs, gallops, or rubs. Regular rate and rhythm. Respiratory: Clear bilaterally to auscultation. No work of breathing or using accessory muscles. Abdomen: Soft, nontender to palpation. Bowel sounds present. No organomegaly. Extremities: No clubbing, cyanosis, or edema. Peripheral pulses present in both legs. Neurological: Patient alert and oriented x3. Able to move 4 extremities. Cranial nerves 2 though 12 grossly normal. LABORATORY DATA: White cell count 6.34, hemoglobin 10.3, hematocrit 32.1, platelets 267. INR 2.96. BMP unremarkable. ASSESSMENT AND PLAN: 1. Possible colitis patient has been started on Levaquin, Flagyl and Zosyn. Patient definitely is getting better. Right now, because the patient is getting something which covers anaerobes, I do not think we need to use Flagyl. So we are going to discontinue this medication and continue with Zosyn. 2. Bilateral pulmonary embolism. Patient has been taking Coumadin and at the time that the patient was evaluated in the ER, it was a little bit up so this medication was held yesterday and today and the INR is 2.9. So, we are going to hold this medication for 1 more day and then we are going to restart it. 3. Deep vein thrombosis prophylaxis. Patient is on Coumadin. 4. Tobacco abuse. Patient encouraged to stop smoking. cc: Payam Whyte MD
[2016-08-27] MEDS ORDERED: SODIUM CHLORIDE 0.9% INJ PRN (16:41)
[2016-08-27] MEDS: PHENERGAN IV PRN ×2 (17:04→20:14)
[2016-08-27] MEDS: LEVAQUIN 500 MG/D5W 500 MG/100 ML IVPB IV SCH (20:13)
[2016-08-27] MEDS ORDERED: SEROQUEL PO SCH (21:00)
[2016-08-27] MEDS ORDERED: COUMADIN PO SCH ×3 (21:00)
[2016-08-27] MEDS ORDERED: DILAUDID IV ONE (22:36)
[2016-08-27 23:01] LABS: UR AMPHETAMINES QUAL NONE DETECTED (NONE DETECT); UR BARBITUATES QUAL NONE DETECTED (NONE DETECT); UR BENZODIAZEPIN QUAL PRESUMPTIVE POSITIVE (NONE DETECT); UR CANNABINOIDS QUAL NONE DETECTED (NONE DETECT); UR COCAINE QUAL NONE DETECTED (NONE DETECT); UR METHADONE QUAL NONE DETECTED (NONE DETECT); UR OPIATES QUAL NONE DETECTED (NONE DETECT); UR OXYCODONE QUAL NONE DETECTED (NONE DETECT); UR PCP QUAL NONE DETECTED (NONE DETECT)
[2016-08-28] MEDS: ZOSYN 3.375 GM/NS 3.375 GM/50 ML IVPB IV SCH ×4 (00:04→11:52)
[2016-08-28] MEDS: CARAFATE LIQUID PO SCH ×4 (00:04→11:53)
[2016-08-28] MEDS: PHENERGAN IV PRN ×4 (00:05→11:52)
[2016-08-28] MEDS: DILAUDID IV PRN ×4 (00:05→11:52)
[2016-08-28] MEDS: NS 1,000 ML IV SCH ×2 (05:45→09:55)
[2016-08-28 07:02] LABS: HEMATOCRIT 31.7 % (37.0-47.0); HEMOGLOBIN 10.1 g/dL (12.0-16.0); MCH 32.8 PG (27-31); MCHC 31.9 g/dL (33-37); MCV 102.9 FL (81-99); MPV 9.1 FL (7.4-10.4); RBC 3.08 XMIL (4.2-5.4)
[2016-08-28 07:09] LABS: INR 1.84; PROTIME 20.1 Seconds (9.2-11.7)
[2016-08-28 07:25] LABS: AGAP 7; ALBUMIN 3.4 g/dL (3.5-5.0); ALKALINE PHOSPHATASE 55 U/L (32-104); BUN 6 mg/dL (8-22); CALCIUM 8.6 mg/dL (8.8-10.2); CHLORIDE 107 mmol/L (98-107); COSMO 280; GOT 23 U/L (10-30); GPT 16 U/L (10-36); POTASSIUM 3.9 mmol/L (3.5-5.1); SODIUM 142 mmol/L (136-145); TCO2 28 mmol/L (25-35); TOTAL BILIRUBIN 0.18 mg/dL (0.20-1.00); TOTAL PROTEIN 5.6 g/dL (6.3-8.3)
[2016-08-28 07:34] VITALS: BP 110/58
[2016-08-28] MEDS: PROTONIX PO SCH (09:54)
--- NOTE | 2016-08-28 16:27 | DISCHARGE SUMMARY ---
ADMISSION DATE: 08/26/2016 DISCHARGE DATE: 08/28/2016 CONSULTATIONS: Dr. Anthony, Gastroenterology. PERTINENT PROCEDURES: Abdomen and pelvis CT showed no hemorrhage, cholecystectomy, possible thickening of the wall of the descending colon. DISCHARGE DIAGNOSES: 1. Colitis. The patient will continue on p.o. antibiotics with Cipro and Flagyl. Follow up with GI. 2. Previously diagnosed with a pulmonary embolism and on home Coumadin therapy. We will continue Coumadin. 3. GERD. Continue PPI. 4. Anxiety. Continue home medications. HOSPITAL COURSE: Ms. Juares is a 51-year-old female, well known to our service. Past medical history of GERD, gastritis, anxiety. Presented to the ED with abdominal pain and back pain for 5 days. She was discharged on 08/17/2016 where she had actually left AMA. After leaving AMA she returned and was diagnosed with pulmonary emboli sent home on Coumadin therapy. She presented again to the ED with abdominal and back pain. Abdominal x-ray revealed multiple pelvic calcifications. CT of the abdomen and pelvis showed thickening of the wall, descending colon suggestive of colitis. Dr. Lopez was consulted. Patient was started on IV antibiotics. She was continued on her Coumadin therapy, given antiemetics for her nausea as well as IV pain management for her abdominal pain. At 1 point, she did become supratherapeutic with her INR. Her Coumadin was held for 2 days and she will resume at home. She also has a history of tobacco abuse. Cessation was discussed daily as well as the means to quit. She was not given any nicotine patches secondary to her pulmonary emboli. She has not had any more nausea, vomiting or diarrhea. The patient will continue at home with p.o. antibiotics as well as her home Coumadin. Vital signs: Temperature is 98.6 degrees, heart rate 84, respirations 21. Blood pressure is 110/58, O2 is 100% on room air. DISCHARGE DIET: Full liquid diet. Advance as tolerated. FOLLOWUP: The patient is being discharged home. She will follow up with her primary care physician, Dr. Nancy Delcid, as well as Dr. Ly Lopez. She will need to take all p.o. antibiotics as instructed. DISCHARGE MEDICATIONS: 1. Cipro 500 mg p.o. b.i.d. 2. Flagyl 500 mg p.o. t.i.d. 3. Percocet 10 1 each p.o. q.4 hours p.r.n. 4. Protonix 40 mg p.o. daily. 5. Phenergan 25 mg q.6 hours p.r.n. 6. Carafate 1 g p.o. q.6 hours. 7. Coumadin 5 mg p.o. at bedtime. Discharge time 35 minutes. Dictated by ORA Childs for Payam Whyte MD cc: MD Nancy [facility]ares [facility]
--- NOTE | 2016-09-05 18:09 | CONSULTATION ---
DATE OF CONSULTATION: 09/05/2016 REFERRING PHYSICIAN: Payam Morales MD. INDICATION FOR CONSULTATION: Refractory nausea with vomiting associated with abdominal pain. HISTORY OF PRESENT ILLNESS: The patient is a 51-year-old white female who was seen during her previous admissions. She has longstanding nausea with vomiting, abdominal pain and failure to thrive. She was recently admitted with the same concerns. She initially left against medical advice. She was home for 24 hours and then returned due to chest pain and upper abdominal pain. She was found to have multiple pulmonary emboli. She is currently on anticoagulation. She presents with abdominal pain, shortness of breath and coughing of blood tinged secretions. We are asked to participate in her care. PAST MEDICAL HISTORY: 1. GERD. 2. Anxiety. 3. Gastritis. 4. Possible history of Crohn's disease. 5. Schatzki's ring. 6. Hiatal hernia. 7. Erosive esophagitis. 8. Antral ulcer. 9. Fundic gland polyp. 10. Severe duodenitis. 11. Polysubstance abuse in the past. 12. Kidney stones. 13. Rheumatoid arthritis. 14. Chronic pain syndrome. PAST SURGICAL HISTORY: 1. Appendectomy. 2. Tonsillectomy. 3. Lithotripsy. 4. Cholecystectomy. SOCIAL HISTORY: The patient denies alcohol, tobacco or recreational drug use. However, she has had a urine toxicology screens positive for marijuana, opioids, oxycodone, PCP, amphetamines and benzodiazepines. FAMILY HISTORY: Negative for colon cancer or colon polyps. MEDICATION ALLERGIES: 1. Demerol. 2. Zofran. HOME MEDICATIONS AT THE TIME OF ADMISSION: 1. Carafate. 2. Protonix. 3. Coumadin. 4. Phenergan. 5. Percocet. 6. Flagyl. 7. Protonix. 8. Celebrex. 9. Coumadin. 10. Percocet. 11. Xanax. PHYSICAL EXAMINATION: Vital signs: Her blood pressure is 88/52, pulse 75, respirations 16, temperature of 98.1 degrees. HEENT: Negative for jaundice. Pulmonary: Her lungs are clear to auscultation with normal expiratory effort. Cardiovascular: Reveals regular rate and rhythm with no gallops or rubs. Abdominal: Reveals normoactive bowel sounds. The abdomen is soft with mild diffuse tenderness, but no rebound or guarding. Extremities: Bilaterally are negative for cyanosis, clubbing, or edema. OBJECTIVE DATA: Reveals a hemoglobin of 10.3 with hematocrit of 32.1 and a white count of 6.34. She has 267,000 platelets. Her PT is 33.1, with an INR of 2.96 and a PTT of 39.2. Sodium is 140, potassium 4.1, chloride 104, CO2 26, BUN 6, creatinine 0.7 with a glucose of 107. Calcium is 8.5, magnesium 1.6, total bilirubin 0.23, AST 21, ALT 17, alkaline phosphatase 58, total protein 5.5, and albumin 3.3. IMPRESSION: 1. Abdominal pain. 2. History of hematochezia. 3. Multiple upper gastrointestinal concerns including peptic ulcer disease. 4. Anemia. RECOMMENDATION: 1. From a gastrointestinal perspective, the patient is unable to undergo endoscopic evaluation due to her recent pulmonary embolus and the need for chronic anticoagulation. 2. She is followed by a meat pickler in [place] and plans to return to her meat pickler for ongoing care. Therefore, we will sign off. Thank you for allowing us to participate in the care of this patient. cc: MD Payam Espinoza MD
== END 2016-08-28 13:37 | disposition home or self-care (01) ==
LOC: ED 11:27 → 3N 16:25 → SUATTDRO 16:25
PROVIDERS: ATTEND Internal Medicine